=== PATIENT | male | born 1940 | race Caucasian/White ===

== ENCOUNTER 2016-10-27 11:40 | Emergency (ER) | payer OTHER, MEDICARE ==
[2016-10-27 11:48] VITALS: BMI 30.1
--- NOTE | 2016-10-27 11:51 | DR.GENAD ---
HPI - PCP Primary Care Physician: Dr Varma - Complaint/Symptoms Chief Complaint Doctors Comments: Patient states that he was talking to persion and suddenly beccame weak and diaphoretic. There was no chest pain or shortness of breath. He reports that he had a stress test on last performed by Dr Ramirez; results pending. PMH - PMH Past Medical History: Hypertension, Kidney Stones, [place] Past Surgical History: Yes Surgical History: Abdominal Surgery, Appendectomy, CABG/Valve Surgery, Lithotripsy - Family History Family Medical History: [place], Hypertension - Social History Do you use any recreational Drugs:: No ROS - Review of Systems Eyes: No Symptoms Reported ENTM: No Symptoms Reported Respiratoy: No Symptoms Reported Cardiovascular: No Symptoms Reported Gastrointestinal/Abdominal: No Symptoms Reported Genitourinary: No Symptoms Reported Neurological: No Symptoms Reported Musculoskeletal: No Symptoms Reported Integumentary: No Symptoms Reported Hematologic/Lymphatic: No Symptoms Reported Endocrine: No Symptoms Reported Psychiatric: No Symptoms Reported All Other Systems: Reviewed and Negative PE - Vital Signs Vitals: Temperature 97.7 F Pulse Rate [Right Brachial] 62 Pulse Rate 73 Respiratory Rate 16 Blood Pressure [Right Arm] 157/74 Blood Pressure [Left Arm] 110/55 Blood Pressure 191/88 O2 Sat by Pulse Oximetry 95 - General Limitations: No Limitations General Appearance: Alert, Anxious - Head Head Exam: Normal Inspection, Atraumatic - Eyes Eye exam: Normal Appearance, PERRL, EOMI - ENT ENT Exam: Normal Exam External Ear Exam: Normal External Inspection TM/Canal Exam: Bilateral Normal Nose Exam: Normal Nose Exam Mouth Exam: Normal Inspection Throat Exam: Normal Inspection - Neck Neck Exam: Normal Inspection - Chest Chest Inspection: Normal Inspection - Respiratory Respiratory Exam: Normal Lung Sounds Bilat Respiratory Exam: Bilateral Clear to Auscultation - Cardiovascular Cardiovascular Exam: Regular Rate - Abdominal Exam Abdominal Exam: Normal Inspection Abdominal Tenderness: negative: RUQ, RLQ, LUQ, LLQ, Epigastrium, Suprapubic, Diffuse, Mild, Moderate, Severe, Other - Back Back Exam: Normal Inspection - Neurologic Neurological Exam: Alert, Oriented X3, CN II-XII Intact - Psychiatric Psychiatric Exam: Normal Affect - Skin Skin Exam: Warm, Dry Course - Reevaluation 1st: Improved - Consultation Called: 13:00 (Dr Varma agreed to admit for chest pain ) ROR - Labs Reviewed Result Diagrams: 10/27/16 12:03 10/27/16 12:03 Laboratory: WBC 5.8 X10^3/uL (3.6-10.0) 10/27/16 12:03 RBC 4.39 X10^6/uL (4.7-6.0) L 10/27/16 12:03 Hgb 13.2 g/dL (13.5-18.0) L 10/27/16 12:03 Hct 39.0 % (42.0-54.0) L 10/27/16 12:03 MCV 88.8 fL (80.0-100.0) 10/27/16 12:03 MCH 30.1 pg (27.0-34.0) 10/27/16 12:03 MCHC 33.8 g/dL (33.0-35.0) 10/27/16 12:03 RDW 15.1 % (11.6-16.5) 10/27/16 12:03 Plt Count 234 X10^3/uL (150.0-450.0) 10/27/16 12:03 MPV 7.6 fL (7.4-11.0) 10/27/16 12:03 Neut % 61.2 % (42.0-75.0) 10/27/16 12:03 Lymph % 24.3 % (21.0-51.0) 10/27/16 12:03 Taney % 10.9 % (0.0-13.0) 10/27/16 12:03 Eos % 2.9 % (0.9-2.9) 10/27/16 12:03 Baso % 0.7 % (0.2-1.0) 10/27/16 12:03 Neut # 3.6 x10^3/uL (2.2-4.8) 10/27/16 12:03 Lymph # 1.4 X10^3/uL (1.3-2.9) 10/27/16 12:03 Taney # 0.6 x10^3/uL (0.3-0.8) 10/27/16 12:03 Eos # 0.2 x10^3/uL (0.0-0.2) 10/27/16 12:03 Baso # 0.0 X10^3/uL (0.0-0.1) 10/27/16 12:03 Absolute Nucleated RBC 0.0 /100WBC 10/27/16 12:03 INR Target Range - 10/27/16 12:03 INR 1.02 (0.8-1.3) 10/27/16 12:03 Sodium 142 mmol/L (136-145) 10/27/16 12:03 Corrected Sodium 142 mmol/L (136-145) 10/27/16 12:03 Potassium 3.8 mmol/L (3.5-5.1) 10/27/16 12:03 Chloride 106 mmol/L (98-107) 10/27/16 12:03 Carbon Dioxide 28.5 mmol/L (21-32) 10/27/16 12:03 BUN 13 mg/dL (7-18) 10/27/16 12:03 Creatinine 0.96 mg/dL (0.70-1.30) 10/27/16 12:03 Est GFR (MDRD) Af Amer > 60 (>60) 10/27/16 12:03 Est GFR (MDRD) Non-Af > 60 (>60) 10/27/16 12:03 Glucose 116 mg/dL (65-99) H 10/27/16 12:03 Calcium 8.5 mg/dL (8.5-10.1) 10/27/16 12:03 Corrected Calcium TNP 10/27/16 12:03 Phosphorus 3.3 mg/dL (2.6-4.7) 10/27/16 12:03 Magnesium 1.8 mg/dL (1.7-2.9) 10/27/16 12:03 Total Bilirubin 0.40 mg/dL (0.2-1.0) 10/27/16 12:03 AST 57 Units/L (15-37) H 10/27/16 12:03 ALT 59 Units/L (12-78) 10/27/16 12:03 Alkaline Phosphatase 91 Units/L (46-116) 10/27/16 12:03 Creatine Kinase 157 Units/L (39-308) 10/27/16 12:03 CK-MB (CK-2) 1.5 ng/mL (0-4.0) 10/27/16 12:03 CK/CKMB % Calc 1.0 % (<4) 10/27/16 12:03 Troponin I < 0.02 ng/mL (0-1.5) 10/27/16 12:03 Total Protein 7.4 g/dL (6.4-8.2) 10/27/16 12:03 Albumin 3.4 g/dL (3.4-5.0) 10/27/16 12:03 Globulin 4.0 g/dL (2.5-4.5) 10/27/16 12:03 Albumin/Globulin Ratio 0.9 Ratio (1.1-2.1) L 10/27/16 12:03 - XRAY XRAY Interpreted by: Radiologist (CT Brain: No intracranial process, bilateral phenoid sinusitis,Chest: stable mild cardiomegaly with bilateral interstitial prominence no focal consolidation or significant effusion) - Diagnosis Discharge Problem: Chest pain Qualifiers: Chest pain type: unspecified Qualified Code(s): R07.9 - Chest pain, unspecified - Discharge Plan Condition: Stable - Follow ups/Referrals Follow ups/Referrals: Dylan Varma [Primary Care Provider] - 3 days - Instructions
[2016-10-27 12:12] LABS: BASOPHILS % (AUTO) 0.7 % (0.2-1.0); EOSINOPHILS # (AUTO) 0.2 x10^3/uL (0.0-0.2); EOSINOPHILS % (AUTO) 2.9 % (0.9-2.9); HEMOGLOBIN 13.2 g/dL (13.5-18.0); LYMPHOCYTES # (AUTO) 1.4 X10^3/uL (1.3-2.9); LYMPHOCYTES % (AUTO) 24.3 % (21.0-51.0); MEAN CORPUSCULAR HEMOGLOBIN 30.1 pg (27.0-34.0); MEAN CORPUSCULAR HGB CONC 33.8 g/dL (33.0-35.0); MEAN CORPUSCULAR VOLUME 88.8 fL (80.0-100.0); MEAN PLATELET VOLUME 7.6 fL (7.4-11.0); MONOCYTES # (AUTO) 0.6 x10^3/uL (0.3-0.8); MONOCYTES % (AUTO) 10.9 % (0.0-13.0); NEUTROPHILS # (AUTO) 3.6 x10^3/uL (2.2-4.8); NEUTROPHILS % (AUTO) 61.2 % (42.0-75.0); PLATELET COUNT 234 X10^3/uL (150.0-450.0); RED BLOOD COUNT 4.39 X10^6/uL (4.7-6.0); RED CELL DISTRIBUTION WIDTH 15.1 % (11.6-16.5); WHITE BLOOD COUNT 5.8 X10^3/uL (3.6-10.0)
[2016-10-27 12:33] LABS: BLOOD UREA NITROGEN 13 mg/dL (7-18); CALCIUM 8.5 mg/dL (8.5-10.1); CARBON DIOXIDE 28.5 mmol/L (21-32); CHLORIDE 106 mmol/L (98-107); COR NA(FOR HYPERGLY) 142 mmol/L (136-145); CREATININE 0.96 mg/dL (0.70-1.30); GLUCOSE 116 mg/dL (65-99); SODIUM 142 mmol/L (136-145); TROPONIN I < 0.02 ng/mL (0-1.5); eGFR BLACK RACES > 60 (>60); eGFR NON BLACK RACES > 60 (>60)
[2016-10-27 12:38] LABS: ALANINE AMINOTRANSFERASE 59 Units/L (12-78); ALBUMIN 3.4 g/dL (3.4-5.0); ALKALINE PHOSPHATASE 91 Units/L (46-116); ASPARTATE AMINO TRANSFERASE 57 Units/L (15-37); CREATINE KINASE 157 Units/L (39-308); CREATINE KINASE MB 1.5 ng/mL (0-4.0); MAGNESIUM 1.8 mg/dL (1.7-2.9); PHOSPHORUS 3.3 mg/dL (2.6-4.7); TOTAL PROTEIN 7.4 g/dL (6.4-8.2)
--- NOTE | 2016-10-27 12:39 | CT ---
HISTORY: Weakness Study: CT brain without contrast Comparison: None Technique: Multiple axial images of the brain were obtained from the skull base to the vertex without administr ation of IV contrast. Coronal and sagittal reformats were performed. Dose reduction procedures were used with MA/kv adjusted for body size. Findings: No acute intraparenchymal hemorrhage or mass can be identified. No extra-axial fluid collections ar e seen. No alteration in the attenuation of the brain parenchyma can be identified to suggest acute or subacute ischemic change. The ventricular system is symmetric and nondilated. age-related corti jose atrophy is present. There is decreased attenuation in the periventricular white matter suggestiv e of small vessel vascular disease. There is opacification of the right and left sphenoid sinuses cano ggestive of sinusitis. IMPRESSION: 1. No acute intracranial process can be identified. 2. Age-related cortical atrophy 3. Small-vessel disease 4. Bilateral sphenoid sinusitis Reported By:
[2016-10-27 14:26] LABS: BILIRUBIN,URINE NEGATIVE (NEGATIVE); BLOOD/HEMOGLOBIN,URINE NEGATIVE (NEGATIVE); GLUCOSE, URINE NEGATIVE (NEGATIVE); KETONES,URINE NEGATIVE (NEGATIVE); LEUKOCYTE ESTERASE ,URINE NEGATIVE (NEGATIVE); NITRITES,URINE NEGATIVE (NEGATIVE); PROTEIN,URINE NEGATIVE (NEGATIVE); UROBILINOGEN,URINE NORMAL (NORMAL)
[2016-10-27 14:41] LABS: APPEARANCE,URINE CLEAR (CLEAR); BACTERIA,URINE NEGATIVE /HPF (NEGATIVE); COLOR,URINE YELLOW (YELLOW); RBC,URINE NONE SEEN /HPF (NEGATIVE); SQUAMOUS EPITHELIAL CELL,UR RARE /HPF (NEGATIVE)
[2016-10-27] MEDS ORDERED: PREVNAR 13 IM ONE (16:27)
[2016-10-27] MEDS ORDERED: TYLENOL 325 MG TAB PO ONE (16:41)
[2016-10-27] MEDS: TYLENOL 325 MG TAB PO PRN (16:45)
[2016-10-27 18:25] LABS: CREATINE KINASE 147 Units/L (39-308); TROPONIN I < 0.02 ng/mL (0-1.5)
[2016-10-27 18:48] LABS: CKMB % 0.9 % (<4); CREATINE KINASE MB 1.3 ng/mL (0-4.0)
--- NOTE | 2016-10-27 18:53 | DR.H&P ---
H&P - Allergies Allergies/Adverse Reactions: Allergies Allergy/AdvReac Type Severity Reaction Status Date / Time No Known Drug Allergies Allergy Verified 10/27/16 15:58 - Past Medical History Past Medical History: Angina, Arthritis, Coronary Artery Disease, GERD, Hypertension, Kidney Stones, [place] Additional Medical History: Diverticulosis, AAA, BPH, Back Pain, Degenerative Disc Disease, Prostate Cancer in 2007, CABG - Past Surgical History Surgical History: Abdominal Surgery, Appendectomy, CABG/Valve Surgery, Lithotripsy Additional Surgical History: HERNIA REPAIR - Family History Family Medical History: [place], Coronary Artery Disease - Social History Does patient currently use any type of tobacco product: No Have you used tobacco products in the last 12 months: No Type of Tobacco Use: None Does any household member use tobacco: No Alcohol Use: None Drug Use: None - Medications Home Medications: Atorvastatin Calcium 1 tab PO HS 10/27/16 [History Confirmed 10/27/16] - Physical Exam Vital Signs: Temperature 97.8 F Pulse Rate [Right Brachial] 63 Respiratory Rate 20 Blood Pressure [Right Arm] 147/71 O2 Sat by Pulse Oximetry 95
[2016-10-28 01:01] LABS: CKMB % 0.8 % (<4); CREATINE KINASE 143 Units/L (39-308); CREATINE KINASE MB 1.1 ng/mL (0-4.0); TROPONIN I < 0.02 ng/mL (0-1.5)
[2016-10-28] MEDS: TYLENOL 325 MG TAB PO PRN (04:47)
[2016-10-28 05:50] LABS: BASOPHILS % (AUTO) 0.6 % (0.2-1.0); EOSINOPHILS # (AUTO) 0.2 x10^3/uL (0.0-0.2); EOSINOPHILS % (AUTO) 3.3 % (0.9-2.9); HEMATOCRIT 39.1 % (42.0-54.0); HEMOGLOBIN 13.2 g/dL (13.5-18.0); LYMPHOCYTES # (AUTO) 1.2 X10^3/uL (1.3-2.9); LYMPHOCYTES % (AUTO) 21.3 % (21.0-51.0); MEAN CORPUSCULAR HEMOGLOBIN 30.1 pg (27.0-34.0); MEAN CORPUSCULAR HGB CONC 33.8 g/dL (33.0-35.0); MEAN PLATELET VOLUME 7.9 fL (7.4-11.0); MONOCYTES # (AUTO) 0.7 x10^3/uL (0.3-0.8); MONOCYTES % (AUTO) 12.2 % (0.0-13.0); NEUTROPHILS # (AUTO) 3.5 x10^3/uL (2.2-4.8); NEUTROPHILS % (AUTO) 62.6 % (42.0-75.0); PLATELET COUNT 231 X10^3/uL (150.0-450.0); RED BLOOD COUNT 4.39 X10^6/uL (4.7-6.0); RED CELL DISTRIBUTION WIDTH 14.7 % (11.6-16.5); WHITE BLOOD COUNT 5.6 X10^3/uL (3.6-10.0)
[2016-10-28 06:00] LABS: ALANINE AMINOTRANSFERASE 60 Units/L (12-78); ALBUMIN 3.3 g/dL (3.4-5.0); ALKALINE PHOSPHATASE 95 Units/L (46-116); ASPARTATE AMINO TRANSFERASE 59 Units/L (15-37); BLOOD UREA NITROGEN 11 mg/dL (7-18); CALCIUM 8.5 mg/dL (8.5-10.1); CARBON DIOXIDE 27.1 mmol/L (21-32); CHLORIDE 107 mmol/L (98-107); CHOLESTEROL 126 mg/dL (0-200); COR CA(FOR HYPOALB) 9.1 mg/dL (8.5-10.1); CREATININE 0.87 mg/dL (0.70-1.30); GLUCOSE 94 mg/dL (65-99); HDL CHOLESTEROL 42 mg/dL (40-60); SODIUM 143 mmol/L (136-145); TOTAL PROTEIN 7.4 g/dL (6.4-8.2); TRIGLYCERIDES 186 mg/dL (0-150); eGFR BLACK RACES > 60 (>60); eGFR NON BLACK RACES > 60 (>60)
--- NOTE | 2016-10-28 07:25 | RAD ---
HISTORY: Chest pain Study: Chest one view Comparison: October 27, 2016 Findings: The trachea is midline. The cardiac silhouette is enlarged. No congestive heart failure is noted.. The lungs are clear without focal infiltrate or effusion. The bony thorax is unremarkable. The pa tient is status post median sternotomy. IMPRESSION: 1. Cardiomegaly without congestive heart failure 2. No infiltrates Reported By:
[2016-10-28 08:45] VITALS: BP 136/67
[2016-10-28] MEDS ORDERED: PriLOSEC PO SCH (09:00)
[2016-10-28] MEDS ORDERED: NORVASC TAB 5 MG PO SCH (09:00)
[2016-10-28] MEDS ORDERED: TOPROL XL PO SCH (09:00)
[2016-10-28] MEDS ORDERED: LOTENSIN TAB 10 MG PO SCH (09:00)
[2016-10-28] MEDS ORDERED: OMEPRAZOLE PO SCH (09:00)
--- NOTE | 2016-10-28 09:29 | DR.CARTERS ---
Short Stay Summary - Short Stay Summary for: Short Stay Summary for Date of:: 10/28/16 - Admission Date Date of Admission: 10/27/16 - Discharge Date Discharge Date: 10/28/16 - Admission Diagnoses (1) Chest pain Status: Acute - Hospital Course Hospital Course: DAY 1 OF HOSPITAL STAY: MR. MANCINI IS A 76 YEAR OLD PATIENT OF OURS WHO PRESENTED TO THE EMERGENCY ROOM TODAY WITH COMPLAINTS OF WEAKNESS, DIZZINESS, AND DIAPHORESIS. PATIENT STATED THAT HE WAS TALKING WITH A FRIEND WHEN SYMPTOMS STARTED SUDDENLY. PATIENT ALSO COMPLAINED OF CHEST PAIN. PATIENT REPORTED A CARDIAC HISTORY AND STATED THAT HE HAD A STRESS TEST DONE BY LAST WEEK, BUT HE IS AWAITING RESULTS. ON ARRIVAL TO ER, VITALS WERE 97.7, 73, 16, 95 %, 191/88. LABS, CHEST XRAY, AND BRAIN CT WERE OBTAINED. CBC WNL EXCEPT RBC 4.39 , HGB 13.2, HCT 39. CMP WNL EXCEPT GLUCOSE 116, AST 57. URINALYSIS WNL. INR WNL. CHEST XRAY REPORTED STABLE MILD CARDIOMEGALY WITH BILATERAL INTERSTITAL PROMINANCE, POSSIBLY RELATED TO LOW LUNG VOLUMES OR REPRESENT MILD INTERSTITIAL EDEMA. BRAIN CT REPORTS AGE RELATED CORTICAL ATROPHY, SMALL VESSEL DISEASE, AND BILATERAL SPHENOID SINUSITIS. CARDIAC PROFILE NORMAL. EKG REPORTED MULTIPLE PVCs. DUE TO PATIENTS CARDIAC HISTORY, HE WAS ADMITTED FOR FURTHER TREATMENT AND EVALUATION. WE PLANNED TO RECHECK LABS AND FOLLOW UP WITH PATIENT. DAY 2 OF HOSPITAL STAY: PATIENT IS ALERT AND ORIENTED ON MORNING ROUNDS. PATIENT REPORTS FEELING MUCH BETTER. HE DENIES ANY CHEST PAIN, DIZZINESS, OR DIAPHORESIS. VITALS THIS AM WERE 97.6, 68, 18, 92%, 136/67. LABS AND XRAY WERE OBTAINED. CBC WNL EXCEPT RBC 4.39, HGB 13.2, HCT 39.1. CMP WNL EXCEPT AST 59, ALBUMIN 3.3, TRIGLYCERIDES 186. CARDIAC PROFILES WITHIN NORMAL LIMITS. EKG NORMAL. CHEST XRAY REPORTED CARDIOMEGALY WITHOUT CHF. WE PLANNED FOR DISCHARGE. INSTRUCTIONS FOR MEDICATIONS AND FOLLOW-UP WERE DISCUSSED WITH PATIENT AND FAMILY. BOTH VERBALIZED UNDERSTANDING. PATIENT WAS DISCHARGED HOME WITH FAMILY IN STABLE CONDITION. WE CONTINUED PREVIOUS HOME MEDICATIONS WITH INSTRUCTIONS TO FOLLOW UP IN OFFICE NEXT WEEK. - Discharge Medications Discharge Medications: Atorvastatin Calcium 1 tab PO HS 10/27/16 [History] - Discharge Plan Disposition: 01 HOME, SELF-CARE Condition: Stable - Follow up/Referrals Follow up/Referrals: Dylan Varma [Primary Care Provider] - 1 WEEK - Instructions Instructions: Chest Pain Observation Additional Instructions: ACTIVITY TOLERATED. DIET TOLERATED.
[2016-10-28] MEDS ORDERED: LIPITOR TAB 40 MG PO SCH (21:00)
== END 2016-10-28 11:15 | disposition home or self-care (01) ==
LOC: ER 11:53 → MED/SURG 13:46
PROVIDERS: ADMIT Internal Medicine; ATTEND Internal Medicine
PROC: 3E0234Z Introduction of Serum, Toxoid and Vaccine into Muscle, Percutaneous Approach (ICD-10-PCS; principal; 2016-10-27)
DX: R07.89 Other chest pain (principal); R94.31 Abnormal electrocardiogram [ECG] [EKG]; D64.89 Other specified anemias; Z79.899 Other long term (current) drug therapy; R53.1 Weakness; R42 Dizziness and giddiness; I51.7 Cardiomegaly; Z23 Encounter for immunization
CPT/HCPCS: 36415; 70450; 71010; 80053; 80061; 81001; 82550; 82553; 83735; 84100; 84484; 85025; 85610; 93005; 94760; 96365; 99284; A4216; A4222; 90670; G0378

== ENCOUNTER 2021-02-01 10:06 | Inpatient (IN) ==
[2021-02-01 10:15] VITALS: BMI 29.7
--- NOTE | 2021-02-01 10:35 | DR.URIAD ---
HPI Time Seen Time Seen by Provider: 02/01/21 10:21 PCP Primary Care Physician: JANUSZ MENDOZA Complaint Chief Complaint:: PT REPORTS BEING DIZZY AND LOST HIS BALANCE AND PT STATES THAT HE FELL TO THE FLOOR AND THAT HIS HEAD HIT SOMETHING ..BR PT C/O HAVING > N/V, THAT IS WORSE HE STANDS ,BR ( PT'S GAVE HIM ONE OF HER MECLIZINE) PT HAD AN APPT WITH JANUSZ MENDOZA TODAY ,,BR COVID-19 Coronavirus risk:travel/contact w/high risk person: No Has patient experienced Coronavirus symptoms: No Source History Provided: Patient Mode of Arrival Mode of Arrival: Wheelchair Timing Onset of Chief Complaint: 01/28/21 PMH PMH Past Medical History: Yes Past Medical History: Hypertension, Kidney Stones and [place] Past Surgical History: Yes Surgical History: Abdominal Surgery, Appendectomy, CABG/Valve Surgery and Lithotripsy Family History History of Family Medical Conditions: Yes Family Medical History: [place] and Coronary Artery Disease Social History Does patient currently use any type of tobacco product: No Have you used tobacco products in the last 12 months: No Type of Tobacco Use: None Does any household member use tobacco: No Alcohol Use: None Do you use any recreational Drugs:: No Lives With: Family Lives Where: Home Travel Risk Coronavirus risk:travel/contact w/high risk person: No Has patient experienced Coronavirus symptoms: No Infectious screening In the last 2 months have you had wt loss of >10#?: NO Have you had fever, night sweats or hemotysis?: No Have you traveled outside the country in the last 6 months?: No Isolation: Standard PE Vital Signs Vitals: Temperature 98.9 F Pulse Rate 90 Respiratory Rate 18 Blood Pressure [Right Arm] 115/57 Blood Pressure [Left Arm] 136/67 Blood Pressure 115/57 O2 Sat by Pulse Oximetry 93 ROR Labs Reviewed Result Diagrams: 02/01/21 10:54 02/01/21 10:54 Laboratory: WBC 10.9 X10^3/uL (3.6-10.0) H 02/01/21 10:54 RBC 4.22 X10^6/uL (4.7-6.0) L 02/01/21 10:54 Hgb 10.0 g/dL (13.5-18.0) L 02/01/21 10:54 Hct 31.7 % (42.0-54.0) L 02/01/21 10:54 MCV 75.0 fL (80.0-100.0) L 02/01/21 10:54 MCH 23.7 pg (27.0-34.0) L 02/01/21 10:54 MCHC 31.6 g/dL (33.0-35.0) L 02/01/21 10:54 RDW 20.5 % (11.6-16.5) H 02/01/21 10:54 Plt Count 326 X10^3/uL (150.0-450.0) 02/01/21 10:54 Plt Count Comment Adequate (ADEQUATE) 02/01/21 10:54 MPV 6.9 fL (7.4-11.0) L 02/01/21 10:54 Neut % (Auto) 82.7 % (42.0-75.0) H 02/01/21 10:54 Lymph % (Auto) 4.6 % (21.0-51.0) L 02/01/21 10:54 Miller % (Auto) 12.4 % (0.0-13.0) 02/01/21 10:54 Eos % (Auto) 0.1 % (0.9-2.9) L 02/01/21 10:54 Baso % (Auto) 0.2 % (0.2-1.0) 02/01/21 10:54 Neut # (Auto) 9.0 x10^3/uL (2.2-4.8) H 02/01/21 10:54 Lymph # (Auto) 0.5 X10^3/uL (1.3-2.9) L 02/01/21 10:54 Miller # (Auto) 1.4 x10^3/uL (0.3-0.8) H 02/01/21 10:54 Eos # (Auto) 0.0 x10^3/uL (0.0-0.2) 02/01/21 10:54 Baso # (Auto) 0.0 X10^3/uL (0.0-0.1) 02/01/21 10:54 Absolute Nucleated RBC 0.1 /100WBC 02/01/21 10:54 Plt Morphology Comment Normal (NORMAL) 02/01/21 10:54 RBC Morphology Abnormal (NORMAL) 02/01/21 10:54 Hypochromasia Slight A 02/01/21 10:54 Anisocytosis 1+ A 02/01/21 10:54 Microcytosis Slight A 02/01/21 10:54 D-Dimer 0.60 ug/ml (0.0-0.57) H* 02/01/21 14:02 Sample Site Rra 02/01/21 15:12 ABG pH 7.430 (7.35-7.45) 02/01/21 15:12 ABG pCO2 38.0 mmHg (35.0-45.0) 02/01/21 15:12 ABG pO2 56.0 mmHg (80.0-100.0) L 02/01/21 15:12 ABG HCO3 25.2 mmol/L (22-26) 02/01/21 15:12 ABG O2 Saturation 90.0 % (90-100) 02/01/21 15:12 ABG Base Excess 1.0 mmol/L (-2.0-2.0) 02/01/21 15:12 Robin Test Pos 02/01/21 15:12 A-a Gradient 46.0 mmHg 02/01/21 15:12 FiO2 21.0 02/01/21 15:12 Blood Gas Comments Pt taz well eb 02/01/21 15:12 Sodium 135 mmol/L (136-145) L 02/01/21 10:54 Corrected Sodium 136 mmol/L (136-145) 02/01/21 10:54 Potassium 4.4 mmol/L (3.5-5.1) 02/01/21 10:54 Chloride 98 mmol/L (98-107) 02/01/21 10:54 Carbon Dioxide 28.1 mmol/L (21-32) 02/01/21 10:54 BUN 21 mg/dL (7-18) H 02/01/21 10:54 Creatinine 1.13 mg/dL (0.70-1.30) 02/01/21 10:54 Est GFR (MDRD) Af Amer > 60 (>60) 02/01/21 10:54 Est GFR (MDRD) Non-Af > 60 (>60) 02/01/21 10:54 Glucose 121 mg/dL (65-99) H 02/01/21 10:54 Calcium 8.2 mg/dL (8.5-10.1) L 02/01/21 10:54 Corrected Calcium TNP 02/01/21 10:54 Ferritin 31 ng/mL (26-388) 02/01/21 10:54 Total Bilirubin 0.40 mg/dL (0.2-1.0) 02/01/21 10:54 AST 29 Units/L (15-37) 02/01/21 10:54 ALT 36 Units/L (12-78) 02/01/21 10:54 Alkaline Phosphatase 65 Units/L (46-116) 02/01/21 10:54 Creatine Kinase 142 Units/L (39-308) 02/01/21 10:54 CK-MB (CK-2) < 1.0 ng/mL (0-4.0) 02/01/21 10:54 CK/CKMB % Calc 0.7 % (<4) 02/01/21 10:54 Troponin I < 0.02 ng/mL (0-1.5) 02/01/21 10:54 C-Reactive Protein 12.50 mg/L (0-3.0) H 02/01/21 10:58 B-Natriuretic Peptide 203 pg/mL (0-79) H 02/01/21 10:58 Total Protein 7.5 g/dL (6.4-8.2) 02/01/21 10:54 Albumin 3.5 g/dL (3.4-5.0) 02/01/21 10:54 Globulin 4.0 g/dL (2.5-4.5) 02/01/21 10:54 Albumin/Globulin Ratio 0.9 Ratio (1.1-2.1) L 02/01/21 10:54 Amylase 90 Units/L (25-115) 02/01/21 10:54 Lipase 197 Units/L (73-393) 02/01/21 10:54 Specimen Type Random urine 02/01/21 10:58 Urine Color Yellow (YELLOW) 02/01/21 10:58 Urine Appearance Clear (CLEAR) 02/01/21 10:58 Urine pH 6.0 (5.0 - 8.0) 02/01/21 10:58 Ur Specific [place] 1.020 (1.000-1.030) 02/01/21 10:58 Urine Protein 2+ (NEGATIVE) 02/01/21 10:58 Urine Glucose (UA) Negative (NEGATIVE) 02/01/21 10:58 Urine Ketones Negative (NEGATIVE) 02/01/21 10:58 Urine Occult Blood 1+ (NEGATIVE) 02/01/21 10:58 Urine Nitrite Negative (NEGATIVE) 02/01/21 10:58 Urine Bilirubin Negative (NEGATIVE) 02/01/21 10:58 Urine Urobilinogen Normal (NORMAL) 02/01/21 10:58 Ur Leukocyte Esterase Negative (NEGATIVE) 02/01/21 10:58 Urine RBC 0-2 /HPF (0-3) 02/01/21 10:58 Urine WBC None seen /HPF (0-5) 02/01/21 10:58 Ur Squamous Epith Cells Rare /HPF (NEGATIVE) 02/01/21 10:58 Urine Bacteria Negative /HPF (NEGATIVE) 02/01/21 10:58 Ur Culture Indicated? No/not indicated 02/01/21 10:58 SARS CoV-2 RNA Rapid VIRGIL Positive (NEGATIVE) A 02/01/21 12:03 Opioid Opioid Risk Tool Age (Galo box if 16-45): No History of Preadolescent Sexual Abuse: No Total: 0 Total Score Risk Category: Low Risk Copyright: Philippe RUSSELL predicting aberrant behaviors Instructions Forms: EUA Consent Precautions for COVID19 [facility] Patient Portal Social Distancing
[2021-02-01] MEDS ORDERED: NS 1000 ML 1,000 ML ONE (10:37)
[2021-02-01] MEDS ORDERED: ZOFRAN INJ 4 MG VIAL ONE (10:55)
[2021-02-01] MEDS ORDERED: ZOFRAN INJ 4 MG VIAL IVP ONE (10:55)
[2021-02-01] MEDS: NS 1000 ML 1,000 ML IV SCH ×2 (10:59→20:56)
[2021-02-01 11:07] LABS: BASOPHILS % (AUTO) 0.2 % (0.2-1.0); EOSINOPHILS % (AUTO) 0.1 % (0.9-2.9); HEMATOCRIT 31.7 % (42.0-54.0); LYMPHOCYTES # (AUTO) 0.5 X10^3/uL (1.3-2.9); LYMPHOCYTES % (AUTO) 4.6 % (21.0-51.0); MEAN CORPUSCULAR HEMOGLOBIN 23.7 pg (27.0-34.0); MEAN CORPUSCULAR HGB CONC 31.6 g/dL (33.0-35.0); MEAN PLATELET VOLUME 6.9 fL (7.4-11.0); MONOCYTES # (AUTO) 1.4 x10^3/uL (0.3-0.8); MONOCYTES % (AUTO) 12.4 % (0.0-13.0); NEUTROPHILS % (AUTO) 82.7 % (42.0-75.0); PLATELET COUNT 326 X10^3/uL (150.0-450.0); RED BLOOD COUNT 4.22 X10^6/uL (4.7-6.0); RED CELL DISTRIBUTION WIDTH 20.5 % (11.6-16.5); WHITE BLOOD COUNT 10.9 X10^3/uL (3.6-10.0)
[2021-02-01 11:28] LABS: ANISOCYTOSIS 1+; HYPOCHROMASIA SLIGHT; MICROCYTOSIS SLIGHT; PLATELET MORPHOLOGY COMMENT NORMAL (NORMAL)
[2021-02-01 11:31] LABS: ALANINE AMINOTRANSFERASE 36 Units/L (12-78); ALBUMIN 3.5 g/dL (3.4-5.0); ALKALINE PHOSPHATASE 65 Units/L (46-116); AMYLASE 90 Units/L (25-115); ASPARTATE AMINO TRANSFERASE 29 Units/L (15-37); BLOOD UREA NITROGEN 21 mg/dL (7-18); CALCIUM 8.2 mg/dL (8.5-10.1); CARBON DIOXIDE 28.1 mmol/L (21-32); CHLORIDE 98 mmol/L (98-107); CKMB % 0.7 % (<4); COR NA(FOR HYPERGLY) 136 mmol/L (136-145); CREATINE KINASE 142 Units/L (39-308); CREATINE KINASE MB < 1.0 ng/mL (0-4.0); CREATININE 1.13 mg/dL (0.70-1.30); LIPASE 197 Units/L (73-393); SODIUM 135 mmol/L (136-145); TOTAL PROTEIN 7.5 g/dL (6.4-8.2); TROPONIN I < 0.02 ng/mL (0-1.5); eGFR NON BLACK RACES > 60 (>60)
--- NOTE | 2021-02-01 12:44 | CT ---
HISTORYDIZZYSTUDYHEAD (TRAUMA)COMPARISONNoneTECHNIQUE including Automated Exposure Control (AEC) and adjustment of mA and kV were utilized.Contrast: NoneFINDINGSBRAIN PARENCHYMA: No acute hemorrhage, infarct, mass, or mass effect.Crespo-white differentiation is maintained.Scattered white matter chronic small vessel ischemic changes.VENTRICLES/EXTRA-AXIAL SPACES: Normal size and configuration. There is mild cerebral volume loss. No extra-axial fluid collections are identified.EXTRACRANIAL STRUCTURES:Normal bones and soft tissues. There is severe chronic bilateral sphenoid sinusitis with hyperdense material which could reflect chronic inspissated secretions versus allergic fungal sinusitis.IMPRESSIONIntra-axial changes of advancing chronological age without acute intracranial process. Severe chronic sphenoid sinusitis.Electronically signed by: LYN GARY (Feb 01, 2021 12:41:41)
--- NOTE | 2021-02-01 12:53 | CT ---
ABDOMEN/PELVIS W/O CONHISTORY: PAIN, NAUSEAComparison:NoneTechnique:Multiple non contrast axial images of the abdomen and pelvis were obtained from the lung bases to the pubic symphysis.. Dose reduction techniques including Automated Exposure Control (AEC) and adjustment of mA and kV were utlized.Findings:The sensitivity for focal lesion detection within the solid abdominal viscera is diminished without the use of IV contrast.The heart is normal in size. Severe coronary calcification. Mild fibrosis of the lung bases.Liver and spleen are normal in size, contour. No focal lesions. No ductal dilitation. Gallbladder is present. No calcified gallstones or gallbladder wall thickening. The pancreas is unremarkable. Adrenal glands are normal. Kidneys are without hydronephrosis or nephrolithiasis. Severe atherosclerosis of the aorta and its major branches.No bowel obstruction or inflammation. .Appendix not clearly seen however there is no inflammatory change in the right lower quadrant to suggest appendicitis. No abnormal appearing mesenteric or retroperitoneal lymph nodes. . No free fluid or fluid collections. Severe diverticulosis without definite acute diverticular inflammation.The bladder is normal in appearance. Prostate unremarkable. No free fluid or abnormal pelvic lymph nodes.No aggressive osseous lesions.IMPRESSION:1.No definite source of acute pain or nausea identified.2. Chronic findings as above.Electronically signed by: LISA SUGGS (Feb 01, 2021 12:51:51)
[2021-02-01 14:37] LABS: BILIRUBIN,URINE NEGATIVE (NEGATIVE); BLOOD/HEMOGLOBIN,URINE 1+ (NEGATIVE); GLUCOSE, URINE NEGATIVE (NEGATIVE); KETONES,URINE NEGATIVE (NEGATIVE); LEUKOCYTE ESTERASE ,URINE NEGATIVE (NEGATIVE); NITRITES,URINE NEGATIVE (NEGATIVE); PROTEIN,URINE 2+ (NEGATIVE); UROBILINOGEN,URINE NORMAL (NORMAL)
--- NOTE | 2021-02-01 14:45 | RAD ---
CHEST, 1 VIEWHISTORY: HYPOXIA, COUGH, VERY WEAKStudy: Single view of the chest.Comparison:NoneFindings:The cardiomediastinal silhouette is normal. Bilateral interstitial prominence. No focal consolidations, pleural effusions or pneumothorax. Osseous structures demonstrate no acute abnormality.IMPRESSION:1. Bilateral interstitial prominence. Findings may represent atypical infection, including viral etiologies.Electronically signed by: LISA SUGGS (Feb 01, 2021 14:43:07)
[2021-02-01 14:52] LABS: APPEARANCE,URINE CLEAR (CLEAR); COLOR,URINE YELLOW (YELLOW); RBC,URINE 0-2 /HPF (0-3)
[2021-02-01 14:53] LABS: BACTERIA,URINE NEGATIVE /HPF (NEGATIVE); SQUAMOUS EPITHELIAL CELL,UR RARE /HPF (NEGATIVE)
[2021-02-01] MEDS ORDERED: TORADOL 30 MG VIAL IVP ONE (15:07)
[2021-02-01] MEDS ORDERED: TORADOL 30 MG VIAL ONE (15:11)
[2021-02-01 15:17] LABS: ABG ALLEN TEST POS; ABG HCO3 25.2 mmol/L (22-26)
[2021-02-01] MEDS ORDERED: NS 100 ML IV 100 ML ONE ×2 (15:47→16:43)
[2021-02-01] MEDS ORDERED: REGEN-COV VIAL 10 ML, DRUG FILTER EXTENSION SET * 1 EA in NS 100 ML IV 100 ML IV ONE ×2 (16:37)
[2021-02-01] MEDS ORDERED: TYLENOL 325 MG TAB PO ONE ×2 (16:37→16:43)
[2021-02-01] MEDS ORDERED: SOLU-Medrol 125 MG VIAL IVP ONE (16:37)
--- NOTE | 2021-02-01 16:38 | CT ---
HISTORYD-DIMERSTUDYCTA CHESTCOMPARISONNoneTECHNIQUEAxial images through the chest was performed after the administration of contrast. 3D MIPS images were performed. CT scan was performed following ALARA (As low as Reasonably Achievable).Coronal and Sagittal reformatted images were performed.FINDINGSThe thyroid gland is small. There is no significant axillary adenopathy. There is pretracheal lymph node measuring in short axis 1.4 centimeter. There is also a sub carinal lymph node measuring 1.4 centimeters. The ascending aorta measures approximately 4 centimeters. There is no pleural or pericardial effusions.The spleen is nonenlarged. There is no evidence of adrenal masses, the pancreas demonstrate no focal abnormality. The gallbladder is contracted. The stomach is not distended. There is a small 1.3 centimeters right adrenal nodule. The left adrenal gland is unremarkableThere is no evidence of pulmonary embolism. No focal filling defects in the pulmonary arteries.Lung windows there are some patchy ground-glass radiopacities in the bases likely atelectasis, there is a small area of honeycombing in the periphery of the right upper lobe with ground-glass radiopacities probably chronic changes. No evidence of dominant lung nodulesNo dominant alveolar radiopacities.Bone windows no evidence of aggressive bone lesionsNo acute fractures.IMPRESSIONNo radiographic evidence of pulmonary embolism. Mild mediastinal adenopathyAscending aorta in the upper limits of normalPatchy bibasal atelectasis. Some nonspecific ground-glass radiopacities in the dependent upper lobes, small honeycombing in the periphery of the right upper lobe could be sequela of a prior infection. Active viral pneumonia is also in the differentialElectronically signed by: Leelee Marie (Feb 01, 2021 16:35:39)
[2021-02-01] MEDS ORDERED: SOLU-Medrol 125 MG VIAL ONE (16:43)
[2021-02-01] MEDS ORDERED: REGEN-COV VIAL ONE (16:43)
[2021-02-01] MEDS ORDERED: PULMICORT NEB TX 0.5 MG NEB ONE (19:32)
[2021-02-01] MEDS ORDERED: BROVANA ONE (19:33)
[2021-02-01] MEDS: LIPITOR TAB 40 MG PO SCH (20:56)
[2021-02-01] MEDS: PriLOSEC PO SCH (20:56)
[2021-02-01] MEDS: PULMICORT NEB TX 0.5 MG NEB SCH (21:22)
[2021-02-01] MEDS: BROVANA IN SCH (21:22)
[2021-02-02] MEDS: NS 1000 ML 1,000 ML IV SCH ×4 (04:11→23:04)
[2021-02-02] MEDS ORDERED: TYLENOL 325 MG TAB PO ONE (05:35)
[2021-02-02] MEDS: TYLENOL 325 MG TAB PO PRN ×2 (05:49→20:55)
[2021-02-02 05:59] LABS: BASOPHILS % (AUTO) 0.1 % (0.2-1.0); HEMATOCRIT 31.4 % (42.0-54.0); HEMOGLOBIN 9.9 g/dL (13.5-18.0); LYMPHOCYTES # (AUTO) 0.5 X10^3/uL (1.3-2.9); LYMPHOCYTES % (AUTO) 3.1 % (21.0-51.0); MEAN CORPUSCULAR HEMOGLOBIN 23.7 pg (27.0-34.0); MEAN CORPUSCULAR HGB CONC 31.5 g/dL (33.0-35.0); MEAN CORPUSCULAR VOLUME 75.2 fL (80.0-100.0); MEAN PLATELET VOLUME 7.2 fL (7.4-11.0); MONOCYTES # (AUTO) 0.8 x10^3/uL (0.3-0.8); MONOCYTES % (AUTO) 5.1 % (0.0-13.0); NEUTROPHILS # (AUTO) 13.7 x10^3/uL (2.2-4.8); NEUTROPHILS % (AUTO) 91.7 % (42.0-75.0); PLATELET COUNT 310 X10^3/uL (150.0-450.0); RED BLOOD COUNT 4.18 X10^6/uL (4.7-6.0); RED CELL DISTRIBUTION WIDTH 20.2 % (11.6-16.5)
[2021-02-02 06:29] LABS: ALANINE AMINOTRANSFERASE 29 Units/L (12-78); ALBUMIN 3.1 g/dL (3.4-5.0); ALKALINE PHOSPHATASE 57 Units/L (46-116); ASPARTATE AMINO TRANSFERASE 27 Units/L (15-37); BAND NEUTROPHILS % 5 % (0-10); BLOOD UREA NITROGEN 22 mg/dL (7-18); CARBON DIOXIDE 23.1 mmol/L (21-32); CHLORIDE 102 mmol/L (98-107); COR CA(FOR HYPOALB) 8.7 mg/dL (8.5-10.1); COR NA(FOR HYPERGLY) 137 mmol/L (136-145); CREATININE 0.97 mg/dL (0.70-1.30); SODIUM 136 mmol/L (136-145); TOTAL PROTEIN 7.1 g/dL (6.4-8.2); eGFR NON BLACK RACES > 60 (>60)
[2021-02-02 06:30] LABS: PLATELET MORPHOLOGY COMMENT NORMAL (NORMAL)
[2021-02-02 06:32] LABS: ANISOCYTOSIS 1+; HYPOCHROMASIA SLIGHT; MICROCYTOSIS SLIGHT; OVALOCYTES PRESENT
[2021-02-02] MEDS: PULMICORT NEB TX 0.5 MG NEB SCH ×2 (08:40→20:56)
[2021-02-02] MEDS: BROVANA IN SCH (08:40)
[2021-02-02] MEDS: LOTENSIN TAB 10 MG PO SCH (09:12)
[2021-02-02] MEDS: NORVASC TAB 5 MG PO SCH (09:12)
[2021-02-02] MEDS: TOPROL XL PO SCH (09:14)
[2021-02-02] MEDS: PriLOSEC PO SCH ×2 (09:15→20:55)
[2021-02-02] MEDS ORDERED: LEVAQUIN PREMIX IV 500 MG 500 MG/100 ML BAG IV ONE (09:59)
[2021-02-02] MEDS: SOLU-Medrol 40 MG VIAL IVP SCH ×3 (10:30→21:06)
[2021-02-02] MEDS: IVERMECTIN PO SCH (15:35)
[2021-02-02] MEDS ORDERED: ROBITUSSIN DM PO PRN (20:04)
[2021-02-02] MEDS ORDERED: ROBITUSSIN DM ONE (20:12)
[2021-02-02] MEDS: LIPITOR TAB 40 MG PO SCH (20:55)
[2021-02-02] MEDS: ACCUNEB 1.25 MG NEBULE NEB SCH (20:56)
[2021-02-03 04:27] LABS: ABG ALLEN TEST POS; ABG BASE EXCESS -4.4 mmol/L (-2.0-2.0)
[2021-02-03] MEDS: ACCUNEB 1.25 MG NEBULE NEB SCH ×3 (05:03→12:05)
[2021-02-03 05:33] LABS: BASOPHILS % (AUTO) 0.1 % (0.2-1.0); HEMATOCRIT 24.3 % (42.0-54.0); LYMPHOCYTES # (AUTO) 0.4 X10^3/uL (1.3-2.9); MEAN CORPUSCULAR HEMOGLOBIN 24.1 pg (27.0-34.0); MEAN CORPUSCULAR VOLUME 75.2 fL (80.0-100.0); MEAN PLATELET VOLUME 7.2 fL (7.4-11.0); MONOCYTES # (AUTO) 0.3 x10^3/uL (0.3-0.8); MONOCYTES % (AUTO) 2.3 % (0.0-13.0); NEUTROPHILS # (AUTO) 10.1 x10^3/uL (2.2-4.8); NEUTROPHILS % (AUTO) 93.6 % (42.0-75.0); PLATELET COUNT 283 X10^3/uL (150.0-450.0); RED BLOOD COUNT 3.23 X10^6/uL (4.7-6.0); RED CELL DISTRIBUTION WIDTH 20.5 % (11.6-16.5); WHITE BLOOD COUNT 10.8 X10^3/uL (3.6-10.0)
[2021-02-03 05:49] LABS: ALANINE AMINOTRANSFERASE 23 Units/L (12-78); ALBUMIN 2.3 g/dL (3.4-5.0); ALKALINE PHOSPHATASE 43 Units/L (46-116); ASPARTATE AMINO TRANSFERASE 20 Units/L (15-37); BLOOD UREA NITROGEN 26 mg/dL (7-18); CALCIUM 7.6 mg/dL (8.5-10.1); CARBON DIOXIDE 22.1 mmol/L (21-32); CHLORIDE 107 mmol/L (98-107); COR NA(FOR HYPERGLY) 140 mmol/L (136-145); CREATININE 0.99 mg/dL (0.70-1.30); SODIUM 139 mmol/L (136-145); TOTAL PROTEIN 5.9 g/dL (6.4-8.2); eGFR NON BLACK RACES > 60 (>60)
[2021-02-03 06:05] LABS: BAND NEUTROPHILS % 1 % (0-10); HEMOGLOBIN 7.8 g/dL (13.5-18.0); PLATELET MORPHOLOGY COMMENT NORMAL (NORMAL)
[2021-02-03 06:06] LABS: ANISOCYTOSIS 1+; HYPOCHROMASIA 1+; MICROCYTOSIS SLIGHT; OVALOCYTES PRESENT
[2021-02-03] MEDS: SOLU-Medrol 40 MG VIAL IVP SCH (06:12)
--- NOTE | 2021-02-03 07:55 | RAD ---
HISTORYSOB HX: NH, HTN, COPD, AAA, PROSTATE CANCER SX: ABD, APPENDECTOMY, CABGSTUDYCHEST, 1 VIEWCOMPARISONOne-view chest February 01, 2021FINDINGSThe lungs are adequately expanded. Tracheal airway is normal. Vascularity is normal. The mediastinum is normal. New interstitial process is developing laterally in the right upper lung field which is a change from February 01, 2021. There is also mild increased interstitial markings in the lung bases since the last filmNo pneumothorax.No pleural effusion.No consolidation.Cardiomediastinal silhouette is normal in size and position. There are sternotomy wires presentOsseous structures and soft tissues are unremarkable.IMPRESSIONMild increase in the interstitial prominence right upper lobe laterally in left lower lobe compared to the last study of February 01, 2021. Findings are concerning for atypical infection including viral etiologies.Postsurgical chest status post sternotomy..Electronically signed by: ANA M SEARS (Feb 03, 2021 07:52:45)
[2021-02-03] MEDS: PULMICORT NEB TX 0.5 MG NEB SCH (08:20)
[2021-02-03] MEDS: NS 1000 ML 1,000 ML IV SCH (08:56)
[2021-02-03] MEDS ORDERED: LEVAQUIN PREMIX IV 500 MG 500 MG/100 ML BAG IV SCH (09:00)
[2021-02-03] MEDS: PriLOSEC PO SCH (09:23)
[2021-02-03] MEDS: IVERMECTIN PO SCH (09:23)
[2021-02-03] MEDS: TOPROL XL PO SCH (09:24)
[2021-02-03] MEDS: LOTENSIN TAB 10 MG PO SCH (09:24)
[2021-02-03] MEDS: NORVASC TAB 5 MG PO SCH (09:24)
--- NOTE | 2021-02-03 10:00 | DR.H&P ---
H&P - History & Physical for Day of: H&P Date: 02/01/21 - Chief Complaint Chief Complaint: WEAKNESS, DIZZINESS, NAUSEA, VOMITING - History of Present Illness History of Present Illness: IS A 80 YEAR OLD PATIENT OF OURS. HE PRESENTED TO THE ER WITH COMPLAINTS OF WEAKNESS, DIZZINESS, NAUSEA, AND VOMITING. PATIENT REPORTS THAT SYMPTOMS STARTED 3-4 DAYS AGO AND HAVE PROGRESSIVELY GOTTEN WORSE. HE REPORTS FALLING AT HOME TODAY AND HITTING HIS HEAD. HE DENIES LOC. HIS PMH INCLUDES HTN, KIDNEY STONES, [place], APPENDECTOMY, CABG, AND LITHOTRIPSY. ON ARRIVAL TO THE ER, VITALS WERE 100.5-100-18-88%RA-119/69. HE WAS PLACED ON NASAL CANNULA AT 2 LPM AND SATURATIONS INCREASED TO 93%. LABS WERE OBTAINED. ABNORMAL LAB VALUES INCLUDE THE FOLLOWING: WBC 10.9, RBC 4.22, HGB 10.0, HCT 31.7, D-DIMER 0.63, SODIUM 135, BUN 21, GLUCOSE 121, CALCIUM 8.2, CRP 12.50, BNP 203. CARDIAC ENZYMES WERE WITHIN NORMAL LIMITS. URINALYSIS WAS OBTAINED AND WAS UNREMARKABLE. COVID-19 POSITIVE. AN ABG WAS OBTAINED AND REVEALED: PH 7.430, PC02 38, P02 56, HC03 25.2, 02 SAT 90, A-A GRADIENT 46, FI02 21.0. EKG WAS OBTAINED AND REVEALED: SINUS RHYTHM WITH HR 99. BRAIN CT REVEALED: Intra-axial changes of advancing chronological age without acute intracranial process. Severe chronic sphenoid sinusitis. ABDOMEN/PELVIS CT REVEALED: 1.No definite source of acute pain or nausea identified. CHEST XRAY REVEALED: 1. Bilateral interstitial prominence. Findings may represent atypical infection, including viral etiologies. A CHEST CTA WAS THEN OBTAINED AND REVEALED: No radiographic evidence of pulmonary embolism. Mild mediastinal adenopathy. Ascending aorta in the upper limits of normal. Patchy bibasal atelectasis. Some nonspecific ground-glass radiopacities in the dependent upper lobes, small honeycombing in the periphery of the right upper lobe could be sequela of a prior infection. Active viral pneumonia is also in the differential. IN THE ER, HE WAS GIVEN ZOFRAN 4MG IV X 1 DOSE, TORADOL 30MG IV X 1 DOSE, REGEN-COV IV X 1 DOSE, SOLU-MEDROL 125MG IV X 1 DOSE, TYLENOL 650MG PO X 1 DOSE. HE WAS ADMITTED TO THE HOSPITAL FOR FURTHER EVALUATION AND TREATMENT OF COVID PNEUMONIA, HYPOXIA, N/V, DIZZINESS. HE WAS STARTED ON NORMAL SALINE AT 125 ML/HR, LEVAQUIN 500MG IV DAILY, IVERMECTIN 18MG PO DAILY X 5 DAYS, ALBUTEROL NEBS TID, PULMICORT NEBS BID, ROBITUSSIN DM 10ML PO Q4H PRN, SOLU- MEDROL 40MG IV Q8H, AND HIS HOME MEDICATIONS OF NORVASC, LIPITOR, LOTENSIN, TOPROL, AND PRILOSEC WERE RESUMED. OTHERWISE, WE PLAN TO FOLLOW UP WITH AM LABS AND CONTINUE TO MONITOR. TIME SPENT ON CLINICAL ASSESSMENT, REVIEWING LABS AND IMAGING, DECISION MAKING, AND DOCUMENTATION GREATER THAN 75 MINUTES. - Past Medical History Past Medical History: [place], Hypertension, Kidney Stones Additional Medical History: Diverticulosis, AAA, BPH, Back Pain, Degenerative Disc Disease, Prostate Cancer in 2007 - Past Surgical History Surgical History: Abdominal Surgery, Appendectomy, CABG/Valve Surgery, Lithotripsy - Family History Family Medical History: [place], Hypertension - Social History Does patient currently use any type of tobacco product: No Have you used tobacco products in the last 12 months: No Type of Tobacco Use: Cigarettes How many years tobacco product used: 2 Does any household member use tobacco: No Alcohol Use: None Drug Use: None - Medications Home Medications: No Known Drug Allergies Allergy (Verified 10/27/16 15:58) CONTINUE taking the following medications azithromycin 250 mg PO DAILY 02/01/21 [History] codeine-guaifenesin 10 ml PO Q4-6H PRN 02/01/21 [History] New Prescriptions albuterol sulfate 1.25 mg INHALATION TID #50 ml 02/02/21 [Rx] budesonide 1 ea NEB BIDRESP #50 ml 02/02/21 [Rx] ivermectin 18 mg PO DAILY #30 tab 02/02/21 [Rx] levofloxacin 500 mg PO DAILY #10 tab 02/02/21 [Rx] methylprednisolone [Medrol (Elvis)] See Rx Instructions .ROUTE .COMPLEX #1 ea 02/02/21 [Rx] apixaban [Eliquis] 2.5 mg PO BID #60 tab 02/03/21 [Rx] iron-folic acid-mv, min cmb#15 [Hemocyte-Plus] 1 cap PO DAILY #30 cap 02/03/21 [Rx] - Review of Systems Constitutional: Fever, Weakness Eyes: No Symptoms Reported ENT: No Symptoms Reported Respiratory: Shortness of Breath Cardiovascular: Light Headedness Gastrointestinal: See HPI, Nausea, Vomiting Genitourinary: No Symptoms Reported Musculoskeletal: No Symptoms Reported Skin: No Symptoms Reported Neurological: Weakness - Physical Exam Vital Signs: Temperature 97.7 F Pulse Rate [Apical] 50 Pulse Rate 83 Respiratory Rate 27 Blood Pressure [Right Arm] 129/63 Blood Pressure [Left Arm] 136/67 Blood Pressure 112/56 O2 Sat by Pulse Oximetry 91 Oriented: Normal Eyes: Normal Ear: Normal Nose: Normal Throat: Normal Respiratory: Diminished Throughout Cardiovascular: Normal : Normal Auscultation: Bowel Sounds: Normal Palpation: Normal Tenderness: Normal Skin: Wound (RIGHT ELBOW AND LEFT UPPER ARM SKIN TEAR ) Musculoskeletal: Normal Psychiatric: Normal Mood Description: Calm Affect: Normal Speech Pattern: Clear - Assessment/Plan (1) Pneumonia due to COVID-19 virus Status: Acute Plan: ADMIT, SUPPLEMENTAL OXYGEN, NORMAL SALINE AT 125 ML/HR, LEVAQUIN 500MG IV DAILY, IVERMECTIN 18MG PO DAILY X 5 DAYS, ALBUTEROL NEBS TID, PULMICORT NEBS BID, ROBITUSSIN DM 10ML PO Q4H PRN, SOLU-MEDROL 40MG IV Q8H, AND HIS HOME MEDICATIONS OF NORVASC, LIPITOR, LOTENSIN, TOPROL, AND PRILOSEC WERE RESUMED. (2) Hypoxia Status: Acute (3) Nausea and vomiting Qualifiers: Vomiting Intractability: unspecified Status: Acute (4) Dizziness Status: Acute - Allergies Allergies/Adverse Reactions: Allergies Allergy/AdvReac Type Severity Reaction Status Date / Time No Known Drug Allergies Allergy Verified 10/27/16 15:58
[2021-02-03 11:21] VITALS: BP 106/53
== END 2021-02-03 13:30 | disposition home or self-care (01) | DRG 177 ==
LOC: ER 10:20 → ICU 16:45
PROVIDERS: ADMIT Internal Medicine; ATTEND Internal Medicine
DX: R79.82 Elevated C-reactive protein (CRP); S09.90XA Unspecified injury of head, initial encounter; R42 Dizziness and giddiness; R79.89 Other specified abnormal findings of blood chemistry; Y92.9 Unspecified place or not applicable; R94.31 Abnormal electrocardiogram [ECG] [EKG]; U07.1 COVID-19; W18.39XA Other fall on same level, initial encounter; J12.82 Pneumonia due to coronavirus disease 2019

== ENCOUNTER 2024-11-16 14:42 | Inpatient (IN) ==
[2024-11-16 15:31] LABS: MEAN PLATELET VOLUME 7.6 fL (7.4-11.0)
--- NOTE | 2024-11-16 15:33 | DR.DIZZY ---
HPI Time seen Time Seen by Provider: 11/16/24 15:21 PCP Primary Care Physician: Kojo Complaint Chief Complaint Doctor Comments: 84 yo M, hx of anemia requiring multiple transfusions in the past, had recent aortic valve replacement on 10/18/2024, states he has had increasing weakness ever since his aortic valve surgery, accomp by dyspnea with exertion. Denies chest pain. Denies other complaints. Denies rectal bleeding. Pt had been taking iron for iron-def anemia. Chief Complaint:: Pt presents to ED with her daughter; pt had labs done per PCP yesterday, hgb 5.6. Pt states over the last month he has "been getting weaker; my feet and legs tingle". Pt on home O2 at all times at 2L [place]. Pt states since his heart valve replacement surgery on 10/18, the weakness has progressively worsened. Pt states he did take his AM meds this morning; he took lasix and potassium this AM that he takes QOD. COVID-19 Coronavirus risk:travel/contact w/high risk person: No Has patient experienced Coronavirus symptoms: No Source History Provided: Patient and Family Member Mode of Arrival Mode of Arrival: Wheelchair Timing Onset of Chief Complaint: 10/18/24 Context Stroke Symptoms: None PMH PMH Past Medical History: Yes Past Medical History: Arthritis, COPD, Coronary Artery Disease, Dyslipidemia, GERD, Hypertension, Kidney Stones and CT Past Surgical History: Yes Surgical History: Angioplasty/Stents, Appendectomy, CABG/Valve Surgery and Lithotripsy Past Surgical History Comment: hernia repair Family History History of Family Medical Conditions: Yes Family Medical History: CT, Coronary Artery Disease and Hypertension Social History Does patient currently use any type of tobacco product: No Have you used tobacco products in the last 12 months: No Does any household member use tobacco: No Alcohol Use: None Do you use any recreational Drugs:: No Lives Where: Home Travel Risk Coronavirus risk:travel/contact w/high risk person: No Has patient experienced Coronavirus symptoms: No Infectious screening In the last 2 months have you had wt loss of >10#?: NO Have you had fever, night sweats or hemotysis?: No Have you traveled outside the country in the last 6 months?: No Isolation: Standard ROS Review of Systems Constitutional: Weakness Respiratoy: Short of Breath (with exertion) All Other Systems: Reviewed and Negative PE Vital Signs Vitals: Vital Signs Temperature 98.3 F Pulse Rate 82 Pulse Rate 81 Pulse Rate 83 Pulse Rate 85 Pulse Rate 87 Pulse Rate 83 Pulse Rate 92 Pulse Rate 89 Respiratory Rate 42 Respiratory Rate 33 Respiratory Rate 38 Respiratory Rate 43 Respiratory Rate 40 Respiratory Rate 34 Respiratory Rate 20 Blood Pressure 131/58 Blood Pressure 104/51 Blood Pressure 106/54 O2 Sat by Pulse Oximetry 97 O2 Sat by Pulse Oximetry 97 O2 Sat by Pulse Oximetry 95 O2 Sat by Pulse Oximetry 96 O2 Sat by Pulse Oximetry 96 O2 Sat by Pulse Oximetry 96 O2 Sat by Pulse Oximetry 93 O2 Sat by Pulse Oximetry 95 General Limitations: No Limitations General Appearance: Alert and In No Apparent Distress Head Head Exam: Normal Inspection Eyes Eye exam: Normal Appearance ENT ENT Exam: Normal Exam, Normal Oropharynx and Normal External Ear Exam Neck Neck Exam: Normal Inspection and Full ROM Chest Chest Inspection: Normal Inspection Respiratory Respiratory Exam: Normal Lung Sounds Bilat Cardiovascular Cardiovascular Exam: Regular Rate and Normal Rhythm Abdominal Exam Abdominal Exam: Normal Inspection, Normal Bowel Sounds and Soft Rectal Rectal Exam: Deferred Extremeties Extremities Exam: Normal Inspection and Full ROM Back Back Exam: Normal Inspection and Full ROM Neurologic Neurological Exam: Alert and Oriented X3 Psychiatric Psychiatric Exam: Normal Affect and Normal Mood Skin Skin Exam: Warm, Dry, Intact and Normal Color ROR Labs Reviewed Laboratory Results Reviewed?: Yes 11/16/24 15:06 11/16/24 15:06 Laboratory: WBC 6.1 X10^3/uL (3.6-10.0) 11/16/24 15:06 RBC 2.26 X10^6/uL (4.7-6.0) L 11/16/24 15:06 Hgb 6.1 g/dL (13.5-18.0) L* 11/16/24 15:06 Hct 20.3 % (42.0-54.0) L 11/16/24 15:06 MCV 89.8 fL (80.0-100.0) 11/16/24 15:06 MCH 27.1 pg (27.0-34.0) 11/16/24 15:06 MCHC 30.1 g/dL (33.0-35.0) L 11/16/24 15:06 RDW 18.6 % (11.6-16.5) H 11/16/24 15:06 Plt Count 245 X10^3/uL (150.0-450.0) 11/16/24 15:06 MPV 7.6 fL (7.4-11.0) 11/16/24 15:06 Neut % (Auto) 82.7 % (42.0-75.0) H 11/16/24 15:06 Lymph % (Auto) 6.7 % (21.0-51.0) L 11/16/24 15:06 [place] % (Auto) 8.9 % (0.0-13.0) 11/16/24 15:06 Eos % (Auto) 1.4 % (0.9-2.9) 11/16/24 15:06 Baso % (Auto) 0.3 % (0.2-1.0) 11/16/24 15:06 Neut # (Auto) 5.0 x10^3/uL (2.2-4.8) H 11/16/24 15:06 Lymph # (Auto) 0.4 X10^3/uL (1.3-2.9) L 11/16/24 15:06 [place] # (Auto) 0.5 x10^3/uL (0.3-0.8) 11/16/24 15:06 Eos # (Auto) 0.1 x10^3/uL (0.0-0.2) 11/16/24 15:06 Baso # (Auto) 0.0 X10^3/uL (0.0-0.1) 11/16/24 15:06 Absolute Nucleated RBC 0.4 /100WBC 11/16/24 15:06 PT 15.1 SECONDS (11.8-14.3) 11/16/24 15:06 INR Target Range - 11/16/24 15:06 INR 1.17 (0.8-1.3) 11/16/24 15:06 APTT 29.3 SECONDS (22.9-36.5) 11/16/24 15:06 PTT Comment - 11/16/24 15:06 Sodium 142 mmol/L (136-145) 11/16/24 15:06 Corrected Sodium 143 mmol/L (136-145) 11/16/24 15:06 Potassium 4.0 mmol/L (3.5-5.1) 11/16/24 15:06 Chloride 106 mmol/L (98-107) 11/16/24 15:06 Carbon Dioxide 30.5 mmol/L (21-32) 11/16/24 15:06 BUN 18 mg/dL (7-18) 11/16/24 15:06 Creatinine 0.97 mg/dL (0.70-1.30) 11/16/24 15:06 Est GFR (MDRD) Af Amer > 60 (>60) 11/16/24 15:06 Est GFR (MDRD) Non-Af > 60 (>60) 11/16/24 15:06 Glucose 121 mg/dL (65-99) H 11/16/24 15:06 Calcium 8.7 mg/dL (8.5-10.1) 11/16/24 15:06 Corrected Calcium TNP 11/16/24 15:06 Magnesium 2.0 mg/dL (2.0-2.9) 11/16/24 15:06 Total Bilirubin 0.30 mg/dL (0.2-1.0) 11/16/24 15:06 AST 23 Units/L (15-37) 11/16/24 15:06 ALT 27 Units/L (12-78) 11/16/24 15:06 Alkaline Phosphatase 90 Units/L (46-116) 11/16/24 15:06 Creatine Kinase 53 Units/L (39-308) 11/16/24 15:06 Troponin I High Sens 17.8 ng/L (4.0-60.0) 11/16/24 15:06 B-Natriuretic Peptide 507 pg/mL (0-79) H 11/16/24 15:06 Total Protein 7.2 g/dL (6.4-8.2) 11/16/24 15:06 Albumin 3.4 g/dL (3.4-5.0) 11/16/24 15:06 Globulin 3.8 g/dL (2.5-4.5) 11/16/24 15:06 Albumin/Globulin Ratio 0.9 Ratio (1.1-2.1) L 11/16/24 15:06 Opioid Opioid Risk Tool Age (Galo box if 16-45): No History of Preadolescent Sexual Abuse: No Total: 0 Total Score Risk Category: Low Risk Copyright: Philippe RUSSELL predicting aberrant behaviors Discharge Plan Diagnosis Discharge Problem: Symptomatic anemia, Normocytic anemia, Dyspnea Discharge Problem: (Ruled Out): Abdominal pain, Acute diverticulitis Discharge Plan Patient Disposition: ADMITTED INPATIENT Condition: Stable Orders to Discharge Patient Discharge Orders: Transfer (Routine); Ordered 11/16/24 Ordered By: Chin Fink
[2024-11-16 15:34] LABS: RED CELL DISTRIBUTION WIDTH 18.6 % (11.6-16.5)
[2024-11-16 15:40] LABS: COR NA(FOR HYPERGLY) 143 mmol/L (136-145); CREATININE 0.97 mg/dL (0.70-1.30); eGFR NON BLACK RACES > 60 (>60)
[2024-11-16 15:45] LABS: INR 1.17 (0.8-1.3)
--- NOTE | 2024-11-16 16:27 | EKG ---
Test Reason : dyspnea Blood Pressure : */* mmHG Vent. Rate : 84 BPM Atrial Rate : * BPM P-R Int : * ms QRS Dur : 102 ms QT Int : 384 ms P-R-T Axes : * -14 -81 degrees QTc Int : 453 ms Atrial fibrillation Minimal voltage criteria for LVH, may be normal variant ( Julian product ) Abnormal ECG When compared with ECG of 15-JUL-2024 06:07, Non-specific change in ST segment in Anterior leads T wave inversion now evident in Anterolateral leads QT has shortened Confirmed by Tomas Sol MD ([id number]) on 11/17/2024 5:49:09 AM Referred By: Confirmed By: Tomas Sol MD
[2024-11-16] MEDS: CONSULT PHARMACY - POTASSIUM & MAGNESIUM XX SCH (17:23)
[2024-11-16] MEDS: NS 1,000 ML IV 1,000 ML IV SCH (17:43)
--- NOTE | 2024-11-16 18:23 | RAD ---
EXAM: CHEST, 1 VIEW HISTORY: over the last month he has "been getting weaker; my feet and legs tingle".; COMPARISON: Prior study or studies were utilized for comparison during interpretation with the most relevant dated 07/15/2024 TECHNIQUE: CHEST, 1 VIEW FINDINGS: Chest: Lines and tubes: Cardiac leads overlie the chest. Mediastinum: Median sternotomy wires are present. The cardiac shadow is enlarged. Pulmonary vessels: There is pulmonary vascular congestion. Lung neff: Patchy opacities are seen Pleura: No effusion. No pneumothorax. Bones and soft tissues: No acute osseous or soft tissue abnormality. IMPRESSION: 1. Findings suggest heart failure THIS IS AN ELECTRONICALLY VERIFIED FINAL REPORT 11/16/2024 6:19 PM - Electronically signed by John Gastelum MD
[2024-11-16 20:33] VITALS: BMI 27.7
[2024-11-16] MEDS: TYLENOL 325 MG TAB PO PRN (21:28)
[2024-11-17 05:16] LABS: COR CA(FOR HYPOALB) 9.3 mg/dL (8.5-10.1); CREATININE 0.80 mg/dL (0.70-1.30); eGFR NON BLACK RACES > 60 (>60)
[2024-11-17 05:17] LABS: MEAN PLATELET VOLUME 7.8 fL (7.4-11.0); RED CELL DISTRIBUTION WIDTH 18.5 % (11.6-16.5)
[2024-11-17] MEDS ORDERED: PHARMACY CONSULT XX SCH (09:00)
[2024-11-17] MEDS: LIPITOR TAB 40 MG PO SCH (09:14)
[2024-11-17] MEDS: IMDUR PO SCH (09:14)
[2024-11-17] MEDS: LOTENSIN TAB 10 MG PO SCH (09:14)
[2024-11-17] MEDS: LASIX PO SCH (09:14)
[2024-11-17] MEDS: PLAVIX PO SCH (09:14)
[2024-11-17] MEDS: TOPROL XL PO SCH (09:14)
[2024-11-17] MEDS: PROSCAR PO SCH (09:14)
[2024-11-17] MEDS: PROTONIX INJ 40 MG VIAL IVP SCH (09:15)
[2024-11-17 09:38] LABS: RETICULOCYTE % 4.7 % (0.8-2.2)
--- NOTE | 2024-11-17 10:47 | DR.H&P ---
H&P History & Physical for Day of: H&P Date: 11/17/24 Chief Complaint Chief Complaint: weakness shortness of breath History of Present Illness History of Present Illness: Patient is a 84-year-old male with a past medical history of aortic valve replacement, CHF, COPD(home 2L), CAD, hypertension, hyperlipidemia, iron deficiency anemia, presenting with increasing weakness and shortness of breath. He had outpatient labs that revealed a hemoglobin that was 6.1. He was admitted for symptomatic anemia. Labs/imaging: WBC 4.1, hemoglobin 5.5, platelets 208, sodium 143, potassium 3.9, creatinine 0.80, glucose 86, troponin negative, BNP 507, chest x-ray consistent with CHF findings. Patient was admitted for symptomatic anemia due to iron deficiency anemia. Will order anemia panel, he has antibodies to certain blood types and we are awaiting 2 units for transfusion. Will transfuse when arrived. Will also order another 4 units. Will restart home medications. Will also order Hemoccult. He does take iron supplements. Continue IV fluids. Otherwise continue with current treatment plan. Continue closely monitor and follow-up labs/imaging. Past Medical History Past Medical History: Arthritis, COPD, Coronary Artery Disease, Dyslipidemia, GERD, Hypertension, Kidney Stones and [place] Additional Medical History: Diverticulosis, AAA, BPH, Back Pain, Degenerative Disc Disease, Prostate Cancer in 2007 Past Surgical History Surgical History: Angioplasty/Stents, CABG/Valve Surgery and Lithotripsy Family History Family Medical History: [place] and Hypertension Social History Does patient currently use any type of tobacco product: No Have you used tobacco products in the last 12 months: No Type of Tobacco Use: None How many years tobacco product used: 2 Does any household member use tobacco: No Alcohol Use: None Drug Use: None Medications Home Medications: Home Medications Medication Instructions Recorded Confirmed Type benazepril 10 mg tablet 10 mg PO DAILY 11/11/2210/05 History metoprolol succinate 50 mg 50 mg PO DAILY 11/11/2210/05 History tablet,extended release 24 hr clopidogrel 75 mg tablet 75 mg PO QDAY 01/10/2411/16 History esomeprazole magnesium 40 mg 40 mg PO QDAY 01/10/24 History capsule,delayed release isosorbide mononitrate 30 mg 30 mg PO QDAY 01/10/24 History tablet,extended release 24 hr finasteride 5 mg tablet 5 mg PO QDAY 07/15/24 History multivit-minerals no.73-iron 2 cap PO DAILY 07/15/24 0 11/16/24 History fumarate 106 mg-folic acid 1 mg capsule (Hemocyte-Plus) atorvastatin 40 mg tablet 40 mg PO QDAY 11/16/2411/16 History mupirocin 2 % topical ointment 1 applic topical BID-TI D 11/16/24 11/16/24 History Allergies Allergies Allergy/AdvReac Type Severity Reaction Status Date / Time No Known Drug Allergies Allergy Unknown Verified 11/16/24 15:16 Labs 11/17/24 04:25 11/17/24 04: Labs: Laboratory WBC 4.1 X10^3/uL (3.6-10.0) 11/17/24 04:25 RBC 2.04 X10^6/uL (4.7-6.0) L 11/17/24 04:25 Hgb 5.5 g/dL (13.5-18.0) L* 11/17/24 04:25 Hct 18.1 % (42.0-54.0) L* 11/17/24 04:25 MCV 88.9 fL (80.0-100.0) 11/17/24 04:25 MCH 27.0 pg (27.0-34.0) 11/17/24 04:25 MCHC 30.4 g/dL (33.0-35.0) L 11/17/24 04:25 RDW 18.5 % (11.6-16.5) H 11/17/24 04:25 Plt Count 208 X10^3/uL (150.0-450.0) 11/17/24 04:25 MPV 7.8 fL (7.4-11.0) 11/17/24 04:25 Neut % (Auto) 62.6 % (42.0-75.0) 11/17/24 04:25 Lymph % (Auto) 19.3 % (21.0-51.0) L 11/17/24 04:25 [place] % (Auto) 13.5 % (0.0-13.0) H 11/17/24 04:25 Eos % (Auto) 4.0 % (0.9-2.9) H 11/17/24 04:25 Baso % (Auto) 0.6 % (0.2-1.0) 11/17/24 04:25 Neut # (Auto) 2.6 x10^3/uL (2.2-4.8) 11/17/24 04:25 Lymph # (Auto) 0.8 X10^3/uL (1.3-2.9) L 11/17/24 04:25 [place] # (Auto) 0.5 x10^3/uL (0.3-0.8) 11/17/24 04:25 Eos # (Auto) 0.2 x10^3/uL (0.0-0.2) 11/17/24 04:25 Baso # (Auto) 0.0 X10^3/uL (0.0-0.1) 11/17/24 04:25 Absolute Nucleated RBC 0.3 /100WBC 11/17/24 04:25 Absolute Retic 0.0964 10^6/uL 11/17/24 04:25 Percent Retic 4.70 % (0.8-2.2) H 11/17/24 04:25 PT 15.1 SECONDS (11.8-14.3) 11/16/24 15:06 INR Target Range - 11/16/24 15:06 INR 1.17 (0.8-1.3) 11/16/24 15:06 APTT 29.3 SECONDS (22.9-36.5) 11/16/24 15:06 PTT Comment - 11/16/24 15:06 Sodium 143 mmol/L (136-145) 11/17/24 04:25 Corrected Sodium TNP 11/17/24 04:25 Potassium 3.9 mmol/L (3.5-5.1) 11/17/24 04:25 Chloride 109 mmol/L (98-107) H 11/17/24 04:25 Carbon Dioxide 30.1 mmol/L (21-32) 11/17/24 04:25 BUN 15 mg/dL (7-18) 11/17/24 04:25 Creatinine 0.80 mg/dL (0.70-1.30) 11/17/24 04:25 Est GFR (MDRD) Af Amer > 60 (>60) 11/17/24 04:25 Est GFR (MDRD) Non-Af > 60 (>60) 11/17/24 04:25 Glucose 86 mg/dL (65-99) 11/17/24 04:25 Calcium 8.3 mg/dL (8.5-10.1) L 11/17/24 04:25 Corrected Calcium 9.3 mg/dL (8.5-10.1) 11/17/24 04:25 Magnesium 2.0 mg/dL (2.0-2.9) 11/16/24 15:06 Iron 12 ug/dL (50-175) L 11/17/24 04:25 TIBC 304 ug/dL (250-450) 11/17/24 04:25 Transferrin 234 mg/dL (202-364) 11/17/24 04:25 Ferritin 29 ng/mL (26-388) 11/17/24 04:25 Total Bilirubin 0.30 mg/dL (0.2-1.0) 11/17/24 04:25 AST 15 Units/L (15-37) 11/17/24 04:25 ALT 20 Units/L (12-78) 11/17/24 04:25 Alkaline Phosphatase 76 Units/L (46-116) 11/17/24 04:25 Creatine Kinase 53 Units/L (39-308) 11/16/24 15:06 Troponin I High Sens 17.8 ng/L (4.0-60.0) 11/16/24 15:06 B-Natriuretic Peptide 507 pg/mL (0-79) H 11/16/24 15:06 Total Protein 6.0 g/dL (6.4-8.2) L 11/17/24 04:25 Albumin 2.8 g/dL (3.4-5.0) L 11/17/24 04:25 Globulin 3.2 g/dL (2.5-4.5) 11/17/24 04:25 Albumin/Globulin Ratio 0.9 Ratio (1.1-2.1) L 11/17/24 04:25 Vitamin B12 349 pg/mL (193-986) 11/17/24 04:25 Folate > 20.0 ng/mL (>8.6) 11/17/24 04:25 Blood Type A POSITIVE 11/16/24 16:02 Antibody Screen Negative 11/16/24 16:02 Crossmatch See Detail 11/16/24 16:02 Review of Systems Constitutional: Weakness Eyes: No Symptoms Reported ENT: No Symptoms Reported Respiratory: Shortness of Breath Cardiovascular: No Symptoms Reported Gastrointestinal: No Symptoms Reported Genitourinary: No Symptoms Reported Musculoskeletal: No Symptoms Reported Skin: No Symptoms Reported Neurological: No Symptoms Reported Physical Exam Vital Signs: Vital Signs Temperature 97.6 F Temperature 98.0 F Pulse Rate [Left Radial] 93 Pulse Rate [Left Radial] 62 Respiratory Rate 17 Respiratory Rate 15 Blood Pressure [Left Arm] 166/83 Blood Pressure [Left Arm] 129/61 O2 Sat by Pulse Oximetry 96 O2 Sat by Pulse Oximetry 95 Oriented: Normal Eyes: Normal Ear: Normal Nose: Normal Throat: Normal Respiratory: Clear Throughout Cardiovascular: Normal : Normal Auscultation: Bowel Sounds: Normal Palpation: Normal Tenderness: Normal Skin: Normal Musculoskeletal: Normal Psychiatric: Normal Mood Description: Calm and Appropriate Affect: Normal Speech Pattern: Clear and Appropriate Assessment/Plan (1) Symptomatic anemia: Status: Acute Plan: Type and cross transfuse 2u packed red blood cells (2) Mild congestive heart failure: Status: Acute Review H&P Reviewed: Yes Patient was examined?: Yes
[2024-11-17] MEDS: NS 1,000 ML IV 1,000 ML IV SCH (11:17)
[2024-11-17] MEDS: NS 250 ML IV 250 ML IV ONE (16:38)
[2024-11-17] MEDS: ZOFRAN INJ 4 MG VIAL IVP PRN (21:47)
[2024-11-18 04:20] LABS: MEAN PLATELET VOLUME 7.6 fL (7.4-11.0); RED CELL DISTRIBUTION WIDTH 18.2 % (11.6-16.5)
[2024-11-18 04:36] LABS: COR CA(FOR HYPOALB) 8.9 mg/dL (8.5-10.1); CREATININE 0.95 mg/dL (0.70-1.30); eGFR NON BLACK RACES > 60 (>60)
[2024-11-18] MEDS: NS 250 ML IV 250 ML IV ONE ×2 (12:45→17:15)
[2024-11-18] MEDS: INJECTAFER 750 MG in NS 250 ML IV 250 ML IV NR ×2 (22:29→22:38)
[2024-11-19 06:04] LABS: MEAN PLATELET VOLUME 7.6 fL (7.4-11.0); RED CELL DISTRIBUTION WIDTH 18.1 % (11.6-16.5)
[2024-11-19 06:19] LABS: COR CA(FOR HYPOALB) 9.2 mg/dL (8.5-10.1); CREATININE 0.76 mg/dL (0.70-1.30); eGFR NON BLACK RACES > 60 (>60)
[2024-11-19] MEDS ORDERED: CONSULT PHARMACY - POTASSIUM & MAGNESIUM XX SCH (07:00)
[2024-11-19] MEDS: K-DUR TAB 20 MEQ PO SCH (08:48)
[2024-11-19] MEDS: MAG-OX TAB PO SCH (08:50)
--- NOTE | 2024-11-19 09:17 | PCM.PROG ---
Progress Note Progress Note for Day of Date of Exam: 11/18/24 Subjective Subjective: Patient is a 84-year-old male with a past medical history of aortic valve replacement, CHF, COPD(home 2L), CAD, hypertension, hyperlipidemia, iron deficiency anemia, admitted for symptomatic anemia. This morning he is resting comfortably in bed. No acute events overnight. He does report improvement in his symptoms. He is status post 2 units packed red blood cells. Labs/imaging: WBC 4.6, hemoglobin 7.3, platelets 197, sodium 142, potassium 3.9, creatinine 0.95, glucose 109, anemia panel revealed low iron levels. Hemeoccult positive. Will transfuse another 2 units packed red blood cells to patient. Will also ordered iron infusion. Discussed with patient and family in likely the plan with his blowing weasand to have a Watchman procedure in the near future. He has also had GI workup and they have discussed pill endoscopy to locate any particular slow bleeding. He plans to follow-up with both of them when he is discharged. Home medications have been resumed. Continue IV fluids. Otherwise continue with current treatment plan. Continue closely monitor and follow-up labs/imaging. Past Medical Family Social History Allergies: Allergies No Known Drug Allergies Allergy (Unknown, Verified 11/16/24 15:16) Onset Date: 10/01/2021 Review of Systems ROS changes noted: see HPI Vital Signs and I&O's Vital Signs: Vital Signs Temperature 97.7 F Pulse Rate [Left Radial] 86 Respiratory Rate 21 Blood Pressure [Left Arm] 135/63 O2 Sat by Pulse Oximetry 94 Intake and Output: Intake & Output 11/16/24 11/17/24 11/18/24 11/19/24 23:59 23:59 23:59 23:59 Intake Total 473 / 473 3513 / 3513 3929 / 3929 1330 / 1330 Output Total 150 / 150 1150 / 1150 800 / 800 600 / 600 Balance 323 / 323 2363 / 2363 3129 / 3129 730 / 730 Physical Exam Oriented: Normal Eyes: Normal Ear: Normal Nose: Normal Throat: Normal Respiratory: Normal Cardiovascular: Normal : Normal Auscultation: Bowel Sounds: Normal Tenderness: Normal Skin: Normal Musculoskeletal: Normal Psychiatric: Normal Mood Description: Calm and Appropriate Affect: Normal Speech Pattern: Clear and Appropriate Laboratory and Diagnostics 11/19/24 05:15 11/19/24 05:15 Labs: Laboratory WBC 6.3 X10^3/uL (3.6-10.0) 11/19/24 05:15 RBC 3.43 X10^6/uL (4.7-6.0) L 11/19/24 05:15 Hgb 9.5 g/dL (13.5-18.0) L 11/19/24 05:15 Hct 29.5 % (42.0-54.0) L 11/19/24 05:15 MCV 86.1 fL (80.0-100.0) 11/19/24 05:15 MCH 27.7 pg (27.0-34.0) 11/19/24 05:15 MCHC 32.2 g/dL (33.0-35.0) L 11/19/24 05:15 RDW 18.1 % (11.6-16.5) H 11/19/24 05:15 Plt Count 182 X10^3/uL (150.0-450.0) 11/19/24 05:15 MPV 7.6 fL (7.4-11.0) 11/19/24 05:15 Neut % (Auto) 74.7 % (42.0-75.0) 11/19/24 05:15 Lymph % (Auto) 8.3 % (21.0-51.0) L 11/19/24 05:15 [place] % (Auto) 13.1 % (0.0-13.0) H 11/19/24 05:15 Eos % (Auto) 3.4 % (0.9-2.9) H 11/19/24 05:15 Baso % (Auto) 0.5 % (0.2-1.0) 11/19/24 05:15 Neut # (Auto) 4.7 x10^3/uL (2.2-4.8) 11/19/24 05:15 Lymph # (Auto) 0.5 X10^3/uL (1.3-2.9) L 11/19/24 05:15 [place] # (Auto) 0.8 x10^3/uL (0.3-0.8) 11/19/24 05:15 Eos # (Auto) 0.2 x10^3/uL (0.0-0.2) 11/19/24 05:15 Baso # (Auto) 0.0 X10^3/uL (0.0-0.1) 11/19/24 05:15 Absolute Nucleated RBC 0.4 /100WBC 11/19/24 05:15 Absolute Retic 0.0964 10^6/uL 11/17/24 04:25 Percent Retic 4.70 % (0.8-2.2) H 11/17/24 04:25 PT 15.1 SECONDS (11.8-14.3) 11/16/24 15:06 INR Target Range - 11/16/24 15:06 INR 1.17 (0.8-1.3) 11/16/24 15:06 APTT 29.3 SECONDS (22.9-36.5) 11/16/24 15:06 PTT Comment - 11/16/24 15:06 Sodium 143 mmol/L (136-145) 11/19/24 05:15 Corrected Sodium TNP 11/19/24 05:15 Potassium 3.8 mmol/L (3.5-5.1) 11/19/24 05:15 Chloride 108 mmol/L (98-107) H 11/19/24 05:15 Carbon Dioxide 29.4 mmol/L (21-32) 11/19/24 05:15 BUN 13 mg/dL (7-18) 11/19/24 05:15 Creatinine 0.76 mg/dL (0.70-1.30) 11/19/24 05:15 Est GFR (MDRD) Af Amer > 60 (>60) 11/19/24 05:15 Est GFR (MDRD) Non-Af > 60 (>60) 11/19/24 05:15 Glucose 101 mg/dL (65-99) H 11/19/24 05:15 Calcium 8.2 mg/dL (8.5-10.1) L 11/19/24 05:15 Corrected Calcium 9.2 mg/dL (8.5-10.1) 11/19/24 05:15 Magnesium 1.8 mg/dL (2.0-2.9) L 11/19/24 05:15 Iron 12 ug/dL (50-175) L 11/17/24 04:25 TIBC 304 ug/dL (250-450) 11/17/24 04:25 Transferrin 234 mg/dL (202-364) 11/17/24 04:25 Ferritin 29 ng/mL (26-388) 11/17/24 04:25 Total Bilirubin 0.80 mg/dL (0.2-1.0) 11/19/24 05:15 AST 20 Units/L (15-37) 11/19/24 05:15 ALT 24 Units/L (12-78) 11/19/24 05:15 Alkaline Phosphatase 85 Units/L (46-116) 11/19/24 05:15 Creatine Kinase 53 Units/L (39-308) 11/16/24 15:06 Troponin I High Sens 17.8 ng/L (4.0-60.0) 11/16/24 15:06 B-Natriuretic Peptide 507 pg/mL (0-79) H 11/16/24 15:06 Total Protein 6.0 g/dL (6.4-8.2) L 11/19/24 05:15 Albumin 2.7 g/dL (3.4-5.0) L 11/19/24 05:15 Globulin 3.3 g/dL (2.5-4.5) 11/19/24 05:15 Albumin/Globulin Ratio 0.8 Ratio (1.1-2.1) L 11/19/24 05:15 Vitamin B12 349 pg/mL (193-986) 11/17/24 04:25 Folate > 20.0 ng/mL (>8.6) 11/17/24 04:25 Stl Occult Blood (IFOB) Positive (NEGATIVE) A 11/17/24 16:09 Blood Type A POSITIVE 11/16/24 16:02 Antibody Screen Negative 11/16/24 16:02 Antibody ID Referred Anti-E 11/16/24 16:02 Crossmatch See Detail 11/16/24 16:02 Plan (1) Symptomatic anemia: Status: Acute Plan: Type and cross transfuse 2u packed red blood cells (2) Mild congestive heart failure: Status: Acute
[2024-11-19 09:47] VITALS: RESP 22; O2SAT 90
[2024-11-19 12:01] VITALS: BP 138/60; PULSE 83; TEMP 97.6
--- NOTE | 2024-11-20 11:01 | W.DIS.FURT ---
Summary of Discharge Discharge Summary of Date Date of Exam: 11/19/24 Admission Date Date of Admission: 11/16/24 Admission Diagnosis Patient Problems (Updated 11/16/24 @ 16:23 by Chin Fink) Dyspnea (Acute) R06.00 Normocytic anemia (Acute) D64.9 Symptomatic anemia (Acute) D64.9 Hospital Course: Patient is a 84-year-old male with a past medical history of aortic valve replacement, CHF, COPD(home 2L), CAD, hypertension, hyperlipidemia, iron deficiency anemia, presenting with increasing weakness and shortness of breath. He had outpatient labs that revealed a hemoglobin that was 6.1. He was admitted for symptomatic anemia. Labs/imaging: WBC 4.1, hemoglobin 5.5, platelets 208, sodium 143, potassium 3.9, creatinine 0.80, glucose 86, troponin negative, BNP 507, chest x-ray consistent with CHF findings. Patient was admitted for symptomatic anemia due to iron deficiency anemia. He has antibodies to certain blood types and we are awaiting on PRBCs for transfusion. He has been seeing GI and having workup for anemia. He did have colonoscopy and is supposed to have EGD and capsule study outpatient. He denied having any active bleeding. His hemoglobin was monitored closely he was transfused 4 units of blood. His hemoglobin came up to 9.5. He also recieved iron infusion. He was doing well, tolerating p.o. intake and ambulating. He was stable to be discharged home. Vital Signs: Vital Signs (72 hours) 11/16/24 14:44 11/16/24 15:01 11/16/24 15:01 Temperature 98.3 F Pulse Rate 89 92 H Pulse Rate [Left Radial] Respiratory Rate 20 Blood Pressure 106/54 104/51 Blood Pressure [Left Arm] Blood Pressure [Right Arm] O2 Sat by Pulse Oximetry 95 93 L Oxygen Delivery Method Nasal Cannula Oxygen Flow Rate FIO2% 11/16/24 15:15 11/16/24 15:30 11/16/24 15:32 Temperature Pulse Rate 83 87 Pulse Rate [Left Radial] Respiratory Rate 34 H 40 H Blood Pressure 131/58 Blood Pressure [Left Arm] Blood Pressure [Right Arm] O2 Sat by Pulse Oximetry 96 96 Oxygen Delivery Method Oxygen Flow Rate FIO2% 11/16/24 15:32 11/16/24 15:45 11/16/24 16:00 Temperature Pulse Rate 85 83 81 Pulse Rate [Left Radial] Respiratory Rate 43 H 38 H 33 H Blood Pressure Blood Pressure [Left Arm] Blood Pressure [Right Arm] O2 Sat by Pulse Oximetry 96 95 97 Oxygen Delivery Method Oxygen Flow Rate FIO2% 11/16/24 16:15 11/16/24 16:43 11/16/24 17:20 Temperature Pulse Rate 82 Pulse Rate [Left Radial] Respiratory Rate 42 H Blood Pressure Blood Pressure [Left Arm] Blood Pressure [Right Arm] O2 Sat by Pulse Oximetry 97 Oxygen Delivery Method Nasal Cannula Nasal Cannula Oxygen Flow Rate 2 2 FIO2% 28 11/16/24 18:27 11/16/24 19:00 11/16/24 20:00 Temperature 98.3 F 97.7 F Pulse Rate Pulse Rate [Left Radial] 89 67 Respiratory Rate 20 17 Blood Pressure Blood Pressure [Left Arm] 121/56 Blood Pressure [Right Arm] 106/54 O2 Sat by Pulse Oximetry 95 98 Oxygen Delivery Method Nasal Cannula Nasal Cannula Nasal Cannula Oxygen Flow Rate 2 2 2 FIO2% 11/16/24 20:51 11/16/24 21:28 11/16/24 22:28 Temperature Pulse Rate Pulse Rate [Left Radial] Respiratory Rate 18 18 Blood Pressure Blood Pressure [Left Arm] Blood Pressure [Right Arm] O2 Sat by Pulse Oximetry Oxygen Delivery Method Nasal Cannula Oxygen Flow Rate 2 FIO2% 28 11/17/24 00:00 11/17/24 04:00 11/17/24 07:00 Temperature 98.5 F 98.0 F Pulse Rate Pulse Rate [Left Radial] 70 62 Respiratory Rate 16 15 Blood Pressure Blood Pressure [Left Arm] 147/63 129/61 Blood Pressure [Right Arm] O2 Sat by Pulse Oximetry 93 L 95 Oxygen Delivery Method Nasal Cannula Nasal Cannula Nasal Cannula Oxygen Flow Rate 2 2 2 FIO2% 11/17/24 07:41 11/17/24 12:00 11/17/24 16:00 Temperature 97.6 F 97.2 F L 97.4 F L Pulse Rate Pulse Rate [Left Radial] 93 H 76 67 Respiratory Rate 17 18 17 Blood Pressure Blood Pressure [Left Arm] 166/83 119/58 131/64 Blood Pressure [Right Arm] O2 Sat by Pulse Oximetry 96 93 L 97 Oxygen Delivery Method Nasal Cannula Nasal Cannula Oxygen Flow Rate 2 2 FIO2% 11/17/24 17:32 11/17/24 19:00 11/17/24 20:00 Temperature 97.6 F Pulse Rate Pulse Rate [Left Radial] 76 Respiratory Rate 20 Blood Pressure Blood Pressure [Left Arm] 129/63 Blood Pressure [Right Arm] O2 Sat by Pulse Oximetry 97 Oxygen Delivery Method Nasal Cannula Nasal Cannula Room Air Oxygen Flow Rate 2 2 2 FIO2% 28 11/17/24 20:00 11/17/24 20:02 11/17/24 21:02 Temperature Pulse Rate Pulse Rate [Left Radial] Respiratory Rate 18 18 Blood Pressure Blood Pressure [Left Arm] Blood Pressure [Right Arm] O2 Sat by Pulse Oximetry Oxygen Delivery Method Nasal Cannula Oxygen Flow Rate 2 FIO2% 28 11/17/24 23:58 11/18/24 00:00 11/18/24 04:00 Temperature 97.9 F 97.9 F 98.0 F Pulse Rate Pulse Rate [Left Radial] 68 68 63 Respiratory Rate 18 18 18 Blood Pressure Blood Pressure [Left Arm] 131/60 131/60 131/60 Blood Pressure [Right Arm] O2 Sat by Pulse Oximetry 93 L 93 L 94 L Oxygen Delivery Method Nasal Cannula Nasal Cannula Nasal Cannula Oxygen Flow Rate 2 2 2 FIO2% 11/18/24 07:00 11/18/24 08:00 11/18/24 09:31 Temperature 97.6 F Pulse Rate Pulse Rate [Left Radial] 83 Respiratory Rate 0 L Blood Pressure Blood Pressure [Left Arm] 160/79 Blood Pressure [Right Arm] O2 Sat by Pulse Oximetry 92 L Oxygen Delivery Method Nasal Cannula Nasal Cannula Nasal Cannula Oxygen Flow Rate 2 2 2 FIO2% 28 11/18/24 12:00 11/18/24 15:26 11/18/24 19:00 Temperature 97.4 F L 97.9 F Pulse Rate Pulse Rate [Left Radial] 80 76 Respiratory Rate 20 21 Blood Pressure Blood Pressure [Left Arm] 139/63 131/63 Blood Pressure [Right Arm] O2 Sat by Pulse Oximetry 92 L 91 L Oxygen Delivery Method Nasal Cannula Nasal Cannula Nasal Cannula Oxygen Flow Rate 2 2 2 FIO2% 11/18/24 20:00 11/18/24 21:15 11/18/24 22:35 Temperature 97.7 F Pulse Rate Pulse Rate [Left Radial] 82 Respiratory Rate 21 21 Blood Pressure Blood Pressure [Left Arm] 150/67 Blood Pressure [Right Arm] O2 Sat by Pulse Oximetry 92 L Oxygen Delivery Method Nasal Cannula Oxygen Flow Rate 2 FIO2% 28 11/18/24 23:35 11/19/24 00:00 11/19/24 04:00 Temperature 98.6 F 97.7 F Pulse Rate Pulse Rate [Left Radial] 81 86 Respiratory Rate 21 18 21 Blood Pressure Blood Pressure [Left Arm] 143/65 135/63 Blood Pressure [Right Arm] O2 Sat by Pulse Oximetry 94 L 94 L Oxygen Delivery Method Oxygen Flow Rate FIO2% 11/19/24 04:33 11/19/24 07:00 11/19/24 08:00 Temperature 97.1 F L Pulse Rate Pulse Rate [Left Radial] 93 H Respiratory Rate 22 Blood Pressure Blood Pressure [Left Arm] 160/78 Blood Pressure [Right Arm] O2 Sat by Pulse Oximetry 90 L Oxygen Delivery Method Nasal Cannula Nasal Cannula Nasal Cannula Oxygen Flow Rate 2 2 2 FIO2% 28 11/19/24 10:01 Temperature Pulse Rate Pulse Rate [Left Radial] Respiratory Rate Blood Pressure Blood Pressure [Left Arm] Blood Pressure [Right Arm] O2 Sat by Pulse Oximetry Oxygen Delivery Method Nasal Cannula Oxygen Flow Rate 2 FIO2% 28 Labs: Laboratory Last Values WBC 6.3 X10^3/uL (3.6-10.0) 11/19/24 05:15 RBC 3.43 X10^6/uL (4.7-6.0) L 11/19/24 05:15 Hgb 9.5 g/dL (13.5-18.0) L 11/19/24 05:15 Hct 29.5 % (42.0-54.0) L 11/19/24 05:15 MCV 86.1 fL (80.0-100.0) 11/19/24 05:15 MCH 27.7 pg (27.0-34.0) 11/19/24 05:15 MCHC 32.2 g/dL (33.0-35.0) L 11/19/24 05:15 RDW 18.1 % (11.6-16.5) H 11/19/24 05:15 Plt Count 182 X10^3/uL (150.0-450.0) 11/19/24 05:15 MPV 7.6 fL (7.4-11.0) 11/19/24 05:15 Neut % (Auto) 74.7 % (42.0-75.0) 11/19/24 05:15 Lymph % (Auto) 8.3 % (21.0-51.0) L 11/19/24 05:15 [place] % (Auto) 13.1 % (0.0-13.0) H 11/19/24 05:15 Eos % (Auto) 3.4 % (0.9-2.9) H 11/19/24 05:15 Baso % (Auto) 0.5 % (0.2-1.0) 11/19/24 05:15 Neut # (Auto) 4.7 x10^3/uL (2.2-4.8) 11/19/24 05:15 Lymph # (Auto) 0.5 X10^3/uL (1.3-2.9) L 11/19/24 05:15 [place] # (Auto) 0.8 x10^3/uL (0.3-0.8) 11/19/24 05:15 Eos # (Auto) 0.2 x10^3/uL (0.0-0.2) 11/19/24 05:15 Baso # (Auto) 0.0 X10^3/uL (0.0-0.1) 11/19/24 05:15 Absolute Nucleated RBC 0.4 /100WBC 11/19/24 05:15 Absolute Retic 0.0964 10^6/uL 11/17/24 04:25 Percent Retic 4.70 % (0.8-2.2) H 11/17/24 04:25 PT 15.1 SECONDS (11.8-14.3) 11/16/24 15:06 INR Target Range - 11/16/24 15:06 INR 1.17 (0.8-1.3) 11/16/24 15:06 APTT 29.3 SECONDS (22.9-36.5) 11/16/24 15:06 PTT Comment - 11/16/24 15:06 Sodium 143 mmol/L (136-145) 11/19/24 05:15 Corrected Sodium TNP 11/19/24 05:15 Potassium 3.8 mmol/L (3.5-5.1) 11/19/24 05:15 Chloride 108 mmol/L (98-107) H 11/19/24 05:15 Carbon Dioxide 29.4 mmol/L (21-32) 11/19/24 05:15 BUN 13 mg/dL (7-18) 11/19/24 05:15 Creatinine 0.76 mg/dL (0.70-1.30) 11/19/24 05:15 Est GFR (MDRD) Af Amer > 60 (>60) 11/19/24 05:15 Est GFR (MDRD) Non-Af > 60 (>60) 11/19/24 05:15 Glucose 101 mg/dL (65-99) H 11/19/24 05:15 Calcium 8.2 mg/dL (8.5-10.1) L 11/19/24 05:15 Corrected Calcium 9.2 mg/dL (8.5-10.1) 11/19/24 05:15 Magnesium 1.8 mg/dL (2.0-2.9) L 11/19/24 05:15 Iron 12 ug/dL (50-175) L 11/17/24 04:25 TIBC 304 ug/dL (250-450) 11/17/24 04:25 Transferrin 234 mg/dL (202-364) 11/17/24 04:25 Ferritin 29 ng/mL (26-388) 11/17/24 04:25 Total Bilirubin 0.80 mg/dL (0.2-1.0) 11/19/24 05:15 AST 20 Units/L (15-37) 11/19/24 05:15 ALT 24 Units/L (12-78) 11/19/24 05:15 Alkaline Phosphatase 85 Units/L (46-116) 11/19/24 05:15 Creatine Kinase 53 Units/L (39-308) 11/16/24 15:06 Troponin I High Sens 17.8 ng/L (4.0-60.0) 11/16/24 15:06 B-Natriuretic Peptide 507 pg/mL (0-79) H 11/16/24 15:06 Total Protein 6.0 g/dL (6.4-8.2) L 11/19/24 05:15 Albumin 2.7 g/dL (3.4-5.0) L 11/19/24 05:15 Globulin 3.3 g/dL (2.5-4.5) 11/19/24 05:15 Albumin/Globulin Ratio 0.8 Ratio (1.1-2.1) L 11/19/24 05:15 Vitamin B12 349 pg/mL (193-986) 11/17/24 04:25 Folate > 20.0 ng/mL (>8.6) 11/17/24 04:25 Stl Occult Blood (IFOB) Positive (NEGATIVE) A 11/17/24 16:09 Blood Type A POSITIVE 11/16/24 16:02 Antibody Screen Negative 11/16/24 16:02 Antibody ID Referred Anti-E 11/16/24 16:02 Crossmatch See Detail 11/16/24 16:02 Reason For Visit: NORMOCYTIC SYMPTOMATIC ANEMIA, DYSPNEA Discharge Diagnosis All Active Problems (Updated 11/16/24 @ 16:23 by Chin Fink) Dyspnea (Acute) Normocytic anemia (Acute) Symptomatic anemia (Acute) Pulmonary edema (Acute) Mild congestive heart failure (Acute) Hypokalemia (Acute) Gastroenteritis (Acute) Severe right inguinal pain (Acute) Chest pain (Acute) Acute diverticulitis (Acute) Abdominal pain (Acute) Pneumonia due to COVID-19 virus (Acute) Hypoxia (Acute) Nausea and vomiting (Acute) Dizziness (Acute) Hypoxia (Acute) COVID-19 virus infection (Acute) Abdominal pain (Acute) Episode of syncope (Acute) COVID-19 (Acute) New onset a-fib (Acute) COPD (chronic obstructive pulmonary disease) (Acute) Angina pectoris (Acute) Right groin pain (Acute) Hypoxemia (Acute) Bronchitis (Acute) Pleural effusion, left (Acute) COPD exacerbation (Acute) Hypokalemia (Acute) BPH (benign prostatic hypertrophy) (Chronic) Diverticulosis (Chronic) DDD (degenerative disc disease) (Chronic) History of abdominal aortic aneurysm (AAA) (Chronic) Back pain (Chronic) Plan of Treatment: Continue with present treatment and follow up plan. Pt is to keep follow up appointment as instructed and take medications as ordered. Discharge Medications Discharge Medications: No Known Drug Allergies Allergy (Unknown, Verified 11/16/24 15:16) CONTINUE taking the following medications atorvastatin 40 mg tablet 40 mg PO QDAY 11/16/24 [History] mupirocin 2 % topical ointment 1 applic topical BID-TID 11/16/24 [History] Discharge Disposition Discharge Disposition: home Discharge Condition: stable Discharge Plan Discharge Plan Hospital Course: Patient is a 84-year-old male with a past medical history of aortic valve replacement, CHF, COPD(home 2L), CAD, hypertension, hyperlipidemia, iron deficiency anemia, presenting with increasing weakness and shortness of breath. He had outpatient labs that revealed a hemoglobin that was 6.1. He was admitted for symptomatic anemia. Labs/imaging: WBC 4.1, hemoglobin 5.5, platelets 208, sodium 143, potassium 3.9, creatinine 0.80, glucose 86, troponin negative, BNP 507, chest x-ray consistent with CHF findings. Patient was admitted for symptomatic anemia due to iron deficiency anemia. He has antibodies to certain blood types and we are awaiting on PRBCs for transfusion. He has been seeing GI and having workup for anemia. He did have colonoscopy and is supposed to have EGD and capsule study outpatient. He denied having any active bleeding. His hemoglobin was monitored closely he was transfused 4 units of blood. His hemoglobin came up to 9.5. He also recieved iron infusion. He w as doing well, tolerating p.o. intake and ambulating. He was stable to be discharged home. Patient Disposition: 01 HOME, SELF-CARE Condition: Stable Health Concerns: Post Hospitalization: new medications and changes needed to prevent readmission or further decline. Pt educated and given instructions on all concerns. Plan of Treatment: Continue with present treatment and follow up plan. Pt is to keep follow up appointment as instructed and take medications as ordered. Prescription drug monitoring program results: PDMP reviewed and no concerns identified Prescriptions: Continued metoprolol succinate 50 mg tablet extended release 24 hr 50 mg PO DAILY Rx Instructions: FreeTextSig: Oral benazepril 10 mg tablet 10 mg PO DAILY Rx Instructions: FreeTextSig: Oral finasteride 5 mg tablet 5 mg PO QDAY Hemocyte-Plus 106 mg iron- 1 mg Capsule 2 cap PO DAILY furosemide 20 mg tablet 20 mg PO QAM MDD 1 Qty: 30 0RF potassium chloride 20 mEq tablet extended release 20 meq PO QDAY MDD 1 Qty: 30 0RF atorvastatin 40 mg tablet 40 mg PO QDAY mupirocin 2 % ointment 1 applic TOPICAL BID-TID clopidogrel 75 mg tablet 75 mg PO QDAY esomeprazole magnesium 40 mg capsule,delayed release(DR/EC) 40 mg PO QDAY isosorbide mononitrate 30 mg tablet extended release 24 hr 30 mg PO QDAY Follow ups/Referrals Follow ups/Referrals: Dylan Varma [Primary Care Provider, MEDICAL] - 3 days Instructions Instructions: Heart Failure Action Plan Activity Restrictions/Additional Instructions: Needs repeat labs at PCP appointment Follow-up with GI and cardiology Stand Alone Forms: Excuse From Work or School, Find Help Web Site, Post Hospital Follow Up Care Print Language: DANISH
== END 2024-11-19 11:45 | disposition home or self-care (01) | DRG 812 ==
LOC: ER 14:42 → MED/SURG 16:21
PROVIDERS: ADMIT Internal Medicine; ATTEND Internal Medicine
DX: R06.09 Other forms of dyspnea; R06.02 Shortness of breath; K92.1 Melena; R94.31 Abnormal electrocardiogram [ECG] [EKG]; Z95.2 Presence of prosthetic heart valve; Z99.81 Dependence on supplemental oxygen; I48.91 Unspecified atrial fibrillation; J44.9 Chronic obstructive pulmonary disease, unspecified; I25.810 Atherosclerosis of coronary artery bypass graft(s) without angina pectoris; D64.89 Other specified anemias; I50.9 Heart failure, unspecified; D50.8 Other iron deficiency anemias; K21.9 Gastro-esophageal reflux disease without esophagitis; E78.5 Hyperlipidemia, unspecified; Z95.5 Presence of coronary angioplasty implant and graft; Z98.890 Other specified postprocedural states; I11.0 Hypertensive heart disease with heart failure

== ENCOUNTER 2025-01-02 11:08 | Inpatient (IN) ==
[2025-01-02 11:22] VITALS: BMI 26.5
--- NOTE | 2025-01-02 11:40 | EKG ---
Test Reason : sob Blood Pressure : */* mmHG Vent. Rate : 80 BPM Atrial Rate : * BPM P-R Int : * ms QRS Dur : 98 ms QT Int : 404 ms P-R-T Axes : * -16 -27 degrees QTc Int : 465 ms Atrial fibrillation with premature ventricular or aberrantly conducted complexes Minimal voltage criteria for LVH, may be normal variant ( [place] product ) Abnormal ECG When compared with ECG of 16-NOV-2024 16:17, T wave inversion no longer evident in Lateral leads Confirmed by Tomas Sol MD ([id number]) on 01/03/2025 5:50:49 AM Referred By: Confirmed By: Tomas Sol MD
[2025-01-02 11:43] LABS: MEAN PLATELET VOLUME 7.4 fL (7.4-11.0); RED CELL DISTRIBUTION WIDTH 17.4 % (11.6-16.5)
[2025-01-02 11:55] LABS: COR CA(FOR HYPOALB) 9.2 mg/dL (8.5-10.1); CREATININE 0.95 mg/dL (0.70-1.30); eGFR NON BLACK RACES > 60 (>60)
--- NOTE | 2025-01-02 13:00 | CT ---
EXAM: CT chest without contrast HISTORY: Shortness of breath TECHNIQUE: Axial noncontrast images with coronal and sagittal reformats. Dose reduction procedures were used with mA/kv adjusted for body size. This examination is limited due to the lack of intravenous contrast. The examination was performed unenhanced at the SOLE direction of the ordering caregiver. Radiology was afforded NO input into the method of performance of this examination. COMPARISON: 12/22/2022, 07/29/2023 FINDINGS: Examination of the mediastinum demonstrated no evidence for mediastinal mass, no enlarged mediastinal or enlarged hilar adenopathy identified to the limitations of an unenhanced examination. Heart is mildly enlarged. Pulmonary venous congestion is present. No interstitial or alveolar edema identified. Calcific atherosclerotic changes present in the thoracic aorta. There is mild dilatation of the ascending thoracic aorta maximum AP diameter 4.3 cm, maximum transverse diameter 4.4 cm. Descending thoracic aorta appears normal in caliber. Patient is status post TAVR. Bilateral moderatel pleural effusions are present [id number]. Those portions of the upper abdominal organs visualized appeared within normal limits to the limitations of an unenhanced examination with the exception of partially visualized fusiform calcified dilatation of the mid infrarenal abdominal aorta measuring 3.9 cm AP and 4.1 cm transverse. This is increased in size from the examination of 07/29/2023 when it measured 3.7 x 3.6 cm. There is redemonstration of extensive plaque at the origins of the celiac axis SMA and bilateral renal arteries unchanged. No chest wall or axillary abnormalities identified. Examination of the lung neff demonstrated diffuse moderate changes of centrilobular emphysema in the upper lobes. Diffuse mild chronic appearing interstitial lung changes are present bilaterally. No pulmonary masses, alveolar infiltrates, areas of consolidation, peribronchial thickening or bronchiectasis identified. No significant noncalcified pulmonary nodules are identified. IMPRESSION: No acute pulmonary infiltrates or significant noncalcified pulmonary nodules Cardiomegaly with pulmonary venous congestion but no definite interstitial or alveolar edema Bilateral pleural effusions [id number] Upper lobe changes of centrilobular emphysema Fusiform infrarenal abdominal aortic aneurysms maximum AP diameter 4.3 cm, maximum transverse diameter 4.4 cm up from 3.9 cm AP and 4.1 cm transverse 07/29/2023. Extensive calcific atherosclerotic change involving the upper abdominal vasculature similar to that noted on prior examinations. THIS IS AN ELECTRONICALLY VERIFIED FINAL REPORT 01/02/2025 12:57 PM - Electronically signed by Chau Davila MD
[2025-01-02 13:10] LABS: BLOOD/HEMOGLOBIN,URINE 2+ (NEGATIVE); LEUKOCYTE ESTERASE ,URINE 3+ (NEGATIVE); NITRITES,URINE NEGATIVE (NEGATIVE)
[2025-01-02 13:19] LABS: APPEARANCE,URINE HAZY (CLEAR)
[2025-01-02 13:20] LABS: SQUAMOUS EPITHELIAL CELL,UR RARE /HPF (NEGATIVE)
--- NOTE | 2025-01-02 14:02 | DR.SOBA ---
HPI Time Seen Time Seen by Provider: 01/02/25 11:08 Primary Care Physician Primary Care Physician: Complaints Chief Complaint Doctors Comments: Patient with GI bleed over the last couple of months. Patient has been having workup outpatient with GI. Denies any chest pain or shortness of breath at this time but states he has been getting winded easily and feels weak. Chief Complaint:: pt states that for the past two months he has been having blood loss through his stools and has been getting bloodwork and a blood transfusion about every week. he also c/o of SOB and weakness. pt denies any chest pain. Source History Provided: Patient Mode of Arrival Mode of Arrival: Wheelchair Timing Onset of Chief Complaint: 01/02/25 PMH PMH Past Medical History: Yes Past Medical History: Arthritis, COPD, Coronary Artery Disease, Dyslipidemia, GERD, Hypertension, Kidney Stones and [place] Past Surgical History: Yes Surgical History: Angioplasty/Stents, CABG/Valve Surgery and Lithotripsy Family History History of Family Medical Conditions: Yes Family Medical History: [place] and Hypertension Social History Type of Tobacco Use: None Alcohol Use: None Do you use any recreational Drugs:: No Lives With: Alone Lives Where: Home Infectious screening Have you traveled outside the country in the last 6 months?: No Isolation: Standard ROS Review of Systems Constitutional: See HPI; negative Fever Eyes: No Symptoms Reported ENTM: No Symptoms Reported Respiratoy: No Symptoms Reported Cardiovascular: No Symptoms Reported; negative Chest Pain, Edema, Palpitations or Syncope Gastrointestinal/Abdominal: See HPI; negative Abdominal Pain, Constipation, Diarrhea, Nausea or Vomiting Genitourinary: No Symptoms Reported Neurological: No Symptoms Reported Musculoskeletal: No Symptoms Reported Integumentary: No Symptoms Reported Hematologic/Lymphatic: No Symptoms Reported Endocrine: No Symptoms Reported Psychiatric: No Symptoms Reported All Other Systems: Reviewed and Negative PE Vital Signs Vitals: Vital Signs Temperature 97.9 F Pulse Rate 77 Pulse Rate 75 Pulse Rate 75 Pulse Rate 73 Pulse Rate 76 Pulse Rate 73 Pulse Rate 64 Pulse Rate 72 Pulse Rate 70 Pulse Rate 73 Pulse Rate 77 Pulse Rate 80 Pulse Rate 72 Pulse Rate 76 Pulse Rate 76 Pulse Rate 84 Pulse Rate 79 Pulse Rate 99 Pulse Rate 80 Pulse Rate 81 Pulse Rate 83 Pulse Rate 81 Pulse Rate 82 Respiratory Rate 34 Respiratory Rate 36 Respiratory Rate 30 Respiratory Rate 29 Respiratory Rate 35 Respiratory Rate 36 Respiratory Rate 21 Respiratory Rate 21 Respiratory Rate 27 Respiratory Rate 29 Respiratory Rate 34 Respiratory Rate 37 Respiratory Rate 35 Respiratory Rate 22 Respiratory Rate 41 Respiratory Rate 31 Blood Pressure 136/97 Blood Pressure 166/68 Blood Pressure 138/60 Blood Pressure 124/57 Blood Pressure 123/59 Blood Pressure 123/59 Blood Pressure 150/62 Blood Pressure 130/60 Blood Pressure 144/67 Blood Pressure 144/67 Blood Pressure 136/59 Blood Pressure 147/65 O2 Sat by Pulse Oximetry 96 O2 Sat by Pulse Oximetry 95 O2 Sat by Pulse Oximetry 97 O2 Sat by Pulse Oximetry 97 O2 Sat by Pulse Oximetry 97 O2 Sat by Pulse Oximetry 94 O2 Sat by Pulse Oximetry 95 O2 Sat by Pulse Oximetry 94 O2 Sat by Pulse Oximetry 96 O2 Sat by Pulse Oximetry 96 O2 Sat by Pulse Oximetry 93 O2 Sat by Pulse Oximetry 93 O2 Sat by Pulse Oximetry 95 O2 Sat by Pulse Oximetry 93 O2 Sat by Pulse Oximetry 89 O2 Sat by Pulse Oximetry 94 O2 Sat by Pulse Oximetry 91 O2 Sat by Pulse Oximetry 92 O2 Sat by Pulse Oximetry 92 O2 Sat by Pulse Oximetry 95 O2 Sat by Pulse Oximetry 95 O2 Sat by Pulse Oximetry 95 General Limitations: No Limitations General Appearance: Alert and In No Apparent Distress Head Head Exam: Normal Inspection Eyes Eye exam: Normal Appearance ENT ENT Exam: Normal Exam Neck Neck Exam: Normal Inspection Chest Chest Inspection: Normal Inspection Respiratory Respiratory Exam: Normal Lung Sounds Bilat Respiratory Exam: Bilateral: Clear to Auscultation Cardiovascular Cardiovascular Exam: Regular Rate and Normal Rhythm Abdominal Exam Abdominal Exam: Normal Inspection, Normal Bowel Sounds and Soft; negative Distention, Tenderness, Guarding, Rebound, Rigidity, Organomegaly or Ascites Extremities Extremities Exam: Normal Inspection Back Back Exam: Normal Inspection Neurologic Neurological Exam: Alert and Oriented X3 Psychiatric Psychiatric Exam: Normal Affect and Normal Mood Skin Skin Exam: Warm, Dry, Intact and Normal Color COURSE Treatment Treatment: Discussed results of workup with patient. Blood transfusion ordered. Patient agreeable with admission Consultation Called: 15:05 Consultation Comments: Discussed case with Dr. Lobo and he is agreeable to admission. ROR Labs Reviewed Laboratory Results Reviewed?: Yes 01/02/25 11:20 01/02/25 11:20 Laboratory: WBC 5.5 X10^3/uL (3.6-10.0) 01/02/25 11:20 RBC 2.30 X10^6/uL (4.7-6.0) L 01/02/25 11:20 Hgb 6.7 g/dL (13.5-18.0) L* 01/02/25 11:20 Hct 20.5 % (42.0-54.0) L 01/02/25 11:20 MCV 89.1 fL (80.0-100.0) 01/02/25 11:20 MCH 29.0 pg (27.0-34.0) 01/02/25 11:20 MCHC 32.6 g/dL (33.0-35.0) L 01/02/25 11:20 RDW 17.4 % (11.6-16.5) H 01/02/25 11:20 Plt Count 194 X10^3/uL (150.0-450.0) 01/02/25 11:20 MPV 7.4 fL (7.4-11.0) 01/02/25 11:20 Neut % (Auto) 80.2 % (42.0-75.0) H 01/02/25 11:20 Lymph % (Auto) 8.1 % (21.0-51.0) L 01/02/25 11:20 [place] % (Auto) 9.6 % (0.0-13.0) 01/02/25 11:20 Eos % (Auto) 1.5 % (0.9-2.9) 01/02/25 11:20 Baso % (Auto) 0.6 % (0.2-1.0) 01/02/25 11:20 Neut # (Auto) 4.4 x10^3/uL (2.2-4.8) 01/02/25 11:20 Lymph # (Auto) 0.4 X10^3/uL (1.3-2.9) L 01/02/25 11:20 [place] # (Auto) 0.5 x10^3/uL (0.3-0.8) 01/02/25 11:20 Eos # (Auto) 0.1 x10^3/uL (0.0-0.2) 01/02/25 11:20 Baso # (Auto) 0.0 X10^3/uL (0.0-0.1) 01/02/25 11:20 Absolute Nucleated RBC 0.2 /100WBC 01/02/25 11:20 Sodium 143 mmol/L (136-145) 01/02/25 11:20 Corrected Sodium TNP 01/02/25 11:20 Potassium 4.1 mmol/L (3.5-5.1) 01/02/25 11:20 Chloride 108 mmol/L (98-107) H 01/02/25 11:20 Carbon Dioxide 29.6 mmol/L (21-32) 01/02/25 11:20 BUN 24 mg/dL (7-18) H 01/02/25 11:20 Creatinine 0.95 mg/dL (0.70-1.30) 01/02/25 11:20 Est GFR (MDRD) Af Amer > 60 (>60) 01/02/25 11:20 Est GFR (MDRD) Non-Af > 60 (>60) 01/02/25 11:20 Glucose 100 mg/dL (65-99) H 01/02/25 11:20 Calcium 8.2 mg/dL (8.5-10.1) L 01/02/25 11:20 Corrected Calcium 9.2 mg/dL (8.5-10.1) 01/02/25 11:20 Magnesium 2.1 mg/dL (2.0-2.9) 01/02/25 11:20 Total Bilirubin 0.50 mg/dL (0.2-1.0) 01/02/25 11:20 AST 17 Units/L (15-37) 01/02/25 11:20 ALT 17 Units/L (12-78) 01/02/25 11:20 Alkaline Phosphatase 69 Units/L (46-116) 01/02/25 11:20 Creatine Kinase 50 Units/L (39-308) 01/02/25 11:20 Troponin I High Sens 14.4 ng/L (4.0-60.0) 01/02/25 11:20 B-Natriuretic Peptide 485 pg/mL (0-79) H 01/02/25 11:20 Total Protein 6.0 g/dL (6.4-8.2) L 01/02/25 11:20 Albumin 2.8 g/dL (3.4-5.0) L 01/02/25 11:20 Globulin 3.2 g/dL (2.5-4.5) 01/02/25 11:20 Albumin/Globulin Ratio 0.9 Ratio (1.1-2.1) L 01/02/25 11:20 Specimen Type Clean catch urine 01/02/25 12:55 Urine Color Yellow (YELLOW) 01/02/25 12:55 Urine Appearance Hazy (CLEAR) 01/02/25 12:55 Urine pH 6.0 (5.0 - 8.0) 01/02/25 12:55 Ur Specific [place] 1.015 (1.000-1.030) 01/02/25 12:55 Urine Protein 2+ (NEGATIVE) 01/02/25 12:55 Urine Glucose (UA) Negative (NEGATIVE) 01/02/25 12:55 Urine Ketones Negative (NEGATIVE) 01/02/25 12:55 Urine Blood 2+ (NEGATIVE) 01/02/25 12:55 Urine Nitrite Negative (NEGATIVE) 01/02/25 12:55 Urine Bilirubin Negative (NEGATIVE) 01/02/25 12:55 Urine Urobilinogen Normal (NORMAL) 01/02/25 12:55 Ur Leukocyte Esterase 3+ (NEGATIVE) 01/02/25 12:55 Urine RBC 5-10 /HPF (0-3) A 01/02/25 12:55 Urine WBC Tntc /HPF (0-5) A 01/02/25 12:55 Ur Squamous Epith Cells Rare /HPF (NEGATIVE) 01/02/25 12:55 Urine Bacteria 1+ /HPF (NEGATIVE) 01/02/25 12:55 Ur Culture Indicated? Yes/culture set up 01/02/25 12:55 Blood Type A POSITIVE 01/02/25 11:20 Antibody Screen Negative 01/02/25 11:20 Crossmatch See Detail 01/02/25 11:20 Other Results Comments: [id number] : 1940 Sex: M Location: Order Number(s): [id number] Procedure(s):CHEST CT W/O CON Ordering Physician: Ryan Martins Primary Care: NFD,None Service Date: 01/02/25 Service Time: 1108 EXAM: CT chest without contrast HISTORY: Shortness of breath TECHNIQUE: Axial noncontrast images with coronal and sagittal reformats. Dose reduction procedures were used with mA/kv adjusted for body size. This examination is limited due to the lack of intravenous contrast. The examination was performed unenhanced at the SOLE direction of the ordering caregiver. Radiology was afforded NO input into the method of performance of this examination. COMPARISON: 12/22/2022, 07/29/2023 FINDINGS: Examination of the mediastinum demonstrated no evidence for mediastinal mass, no enlarged mediastinal or enlarged hilar adenopathy identified to the limitations of an unenhanced examination. Heart is mildly enlarged. Pulmonary venous congestion is present. No interstitial or alveolar edema identified. Calcific atherosclerotic changes present in the thoracic aorta. There is mild dilatation of the ascending thoracic aorta maximum AP diameter 4.3 cm, maximum transverse diameter 4.4 cm. Descending thoracic aorta appears normal in caliber. Patient is status post TAVR. Bilateral moderatel pleural effusions are present [id number]. Those portions of the upper abdominal organs visualized appeared within normal limits to the limitations of an unenhanced examination with the exception of partially visualized fusiform calcified dilatation of the mid infrarenal abdominal aorta measuring 3.9 cm AP and 4.1 cm transverse. This is increased in size from the examination of 07/29/2023 when it measured 3.7 x 3.6 cm. There is redemonstration of extensive plaque at the origins of the celiac axis SMA and bilateral renal arteries unchanged. No chest wall or axillary abnormalities identified. Examination of the lung neff demonstrated diffuse moderate changes of centrilobular emphysema in the upper lobes. Diffuse mild chronic appearing interstitial lung changes are present bilaterally. No pulmonary masses, alveolar infiltrates, areas of consolidation, peribronchial thickening or bronchiectasis identified. No significant noncalcified pulmonary nodules are identified. IMPRESSION: No acute pulmonary infiltrates or significant noncalcified pulmonary nodules Cardiomegaly with pulmonary venous congestion but no definite interstitial or alveolar edema Bilateral pleural effusions [id number] Upper lobe changes of centrilobular emphysema Fusiform infrarenal abdominal aortic aneurysms maximum AP diameter 4.3 cm, maximum transverse diameter 4.4 cm up from 3.9 cm AP and 4.1 cm transverse 07/29/2023. Extensive calcific atherosclerotic change involving the upper abdominal vasculature similar to that noted on prior examinations. THIS IS AN ELECTRONICALLY VERIFIED FINAL REPORT 01/02/2025 12:57 PM - Electronically signed by Chau Davila MD EKG Rate: 80 [place]: Normal Rhythm: Afib and PVCs Block: None Hypertrophy: LVH ST: Normal Opioid Opioid Risk Tool Age (Galo box if 16-45): No History of Preadolescent Sexual Abuse: No Total: 0 Total Score Risk Category: Low Risk Copyright: Philippe RUSSELL predicting aberrant behaviors Discharge Plan Diagnosis Discharge Problem: GI (gastrointestinal bleed), Severe anemia, Acute UTI Discharge Plan Patient Disposition: ADMITTED INPATIENT Condition: Stable Prescriptions: No Action metoprolol succinate 50 mg tablet extended release 24 hr 50 mg PO DAILY Rx Instructions: FreeTextSig: Oral benazepril 10 mg tablet 10 mg PO DAILY Rx Instructions: FreeTextSig: Oral finasteride 5 mg tablet 5 mg PO QDAY atorvastatin 40 mg tablet 40 mg PO QDAY clopidogrel 75 mg tablet 75 mg PO QDAY esomeprazole magnesium 40 mg capsule,delayed release(DR/EC) 40 mg PO QDAY isosorbide mononitrate 30 mg tablet extended release 24 hr 30 mg PO QDAY Health Concerns: Post Hospitalization: new medications and changes needed to prevent readmission or further decline. Pt educated and given instructions on all concerns. Plan of Treatment: Continue with present treatment and follow up plan. Pt is to keep follow up appointment as instructed and take medications as ordered. Orders to Discharge Patient Discharge Orders: Transfer (Routine); Ordered 01/02/25 Ordered By: Ryan Martins Follow ups/Referrals Follow ups/Referrals: NFD,None [Primary Care Provider] - 3 days Instructions Stand Alone Forms: Find Help Web Site, Post Hospital Follow Up Care Print Language: LATVIAN
[2025-01-02] MEDS: ROCEPHIN VIAL 1 GRAM IM ONE (14:13)
[2025-01-02] MEDS: ROCEPHIN VIAL 1 GRAM IVP ONE (14:14)
[2025-01-02] MEDS: NS 100 ML IV 100 ML with VENOFER 400 MG IV ONE (15:41)
[2025-01-02] MEDS ORDERED: ULTRAM PO PRN (15:45)
[2025-01-02] MEDS ORDERED: NORCO 5/325 MG TAB PO PRN (15:45)
[2025-01-02] MEDS: ROCEPHIN VIAL 1 GRAM ONE (15:45)
[2025-01-02] MEDS ORDERED: ZOFRAN INJ 4 MG VIAL IVP PRN (15:45)
[2025-01-02] MEDS: ROCEPHIN VIAL 1 GRAM 1 G in NS 100 ML IV 100 ML IV SCH (15:47)
[2025-01-02] MEDS ORDERED: CONSULT PHARMACY - POTASSIUM & MAGNESIUM XX SCH (16:00)
[2025-01-02] MEDS: TYLENOL 325 MG TAB PO PRN (21:13)
[2025-01-03 05:58] LABS: MEAN PLATELET VOLUME 7.6 fL (7.4-11.0); RED CELL DISTRIBUTION WIDTH 17.3 % (11.6-16.5)
[2025-01-03 06:03] LABS: COR CA(FOR HYPOALB) 9.2 mg/dL (8.5-10.1); CREATININE 0.72 mg/dL (0.70-1.30); eGFR NON BLACK RACES > 60 (>60)
[2025-01-03] MEDS ORDERED: CONSULT PHARMACY - POTASSIUM & MAGNESIUM XX SCH (07:00)
[2025-01-03] MEDS: NS 250 ML IV 250 ML IV ONE ×2 (07:55→13:14)
[2025-01-03] MEDS: LIPITOR TAB 40 MG PO SCH (08:54)
[2025-01-03] MEDS: IMDUR PO SCH (08:54)
[2025-01-03] MEDS: LOTENSIN TAB 10 MG PO SCH (08:54)
[2025-01-03] MEDS: TOPROL XL PO SCH (08:54)
[2025-01-03] MEDS: PROSCAR PO SCH (08:54)
[2025-01-03] MEDS: K-DUR TAB 20 MEQ PO ONE (08:55)
[2025-01-03] MEDS: PLAVIX PO SCH (08:55)
--- NOTE | 2025-01-03 10:10 | DR.H&P ---
H&P History & Physical for Day of: H&P Date: 01/03/25 Chief Complaint Chief Complaint: weakness, sob History of Present Illness History of Present Illness: Patient is a 84-year-old male with a past medical history of CAD, aortic valve replacement, hypertension, hyperlipidemia, GERD, COPD, arthritis and anemia requiring multiple transfusions presented with generalized weakness and shortness of breath. He had aortic valve replacement couple months ago. He has been having worsening anemia requiring weekly transfusions. His last admission was in November and his hemoglobin at the time was 9.5. He did have GI workup including endoscopy and colonoscopy in [place]. He was supposed to follow-up with local GI to have capsule endoscopy. He has had low hemoglobin over the past few weeks requiring weekly transfusion. His hemoglobin on admission was 6.7. He does report dark stools. He is currently on Plavix which he is supposed to stop end of this month. He has currently received 1 unit PRBC and iron infusion. He also has a UTI, currently on Rocephin. CT chest was done in the ER which showed pulmonary congestion and effusion along with emphysema. Labs/imaging reviewed: - WBC 3.9 hemoglobin 6.5 platelet 186 potassium 3.7 creatinine 0.72 - Iron 26 - Chest CT reviewed - Urine culture gram-negative rods Plan: Admit to [facility] with telemetry. Transfuse 2 units PRBCs, monitor hemoglobin. Replace electrolytes as per protocol. Resume home medications. Patient has a consultation with Dr. Aden today. Will check if he is able to do capsule endoscopy while he is admitted. Continue Rocephin. Follow-up final culture. Monitor AM labs/imaging. Time spent for clinical assessment, reviewing labs and imaging, physical exam, decision making and documentation greater than 45 minutes. Past Medical History Past Medical History: Arthritis, COPD, Coronary Artery Disease, Dyslipidemia, GERD, Hypertension, Kidney Stones and [place] Additional Medical History: Diverticulosis, AAA, BPH, Back Pain, Degenerative Disc Disease, Prostate Cancer in 2007 Past Surgical History Surgical History: Angioplasty/Stents, CABG/Valve Surgery and Lithotripsy Family History Family Medical History: [place] and Hypertension Social History Does patient currently use any type of tobacco product: No Type of Tobacco Use: None How many years tobacco product used: 3 Does any household member use tobacco: No Alcohol Use: None Drug Use: None Medications Home Medications: Home Medications Medication Instructions Recorded Confirmed Type benazepril 10 mg tablet 10 mg PO DAILY 11/11/2212/13 History metoprolol succinate 50 mg 50 mg PO DAILY 11/11/22 History tablet,extended release 24 hr clopidogrel 75 mg tablet 75 mg PO QDAY 01/10/2401/02 History esomeprazole magnesium 40 mg 40 mg PO QDAY 01/10/24 History capsule,delayed release isosorbide mononitrate 30 mg 30 mg PO QDAY 01/10/24 History tablet,extended release 24 hr finasteride 5 mg tablet 5 mg PO QDAY 07/15/24 History atorvastatin 40 mg tablet 40 mg PO QDAY 11/16/2401/02 History Allergies Allergies Allergy/AdvReac Type Severity Reaction Status Date / Time No Known Drug Allergies Allergy Unknown Verified 11/16/24 15:16 Labs 01/03/25 05:07 01/03/25 05:07 Labs: 01/02/25 12:55 Urine,Clean Catch Urine Culture - Preliminary Laboratory WBC 3.9 X10^3/uL (3.6-10.0) 01/03/25 05:07 RBC 2.24 X10^6/uL (4.7-6.0) L 01/03/25 05:07 Hgb 6.5 g/dL (13.5-18.0) L* 01/03/25 05:07 Hct 19.9 % (42.0-54.0) L* 01/03/25 05:07 MCV 88.6 fL (80.0-100.0) 01/03/25 05:07 MCH 29.2 pg (27.0-34.0) 01/03/25 05:07 MCHC 33.0 g/dL (33.0-35.0) 01/03/25 05:07 RDW 17.3 % (11.6-16.5) H 01/03/25 05:07 Plt Count 186 X10^3/uL (150.0-450.0) 01/03/25 05:07 MPV 7.6 fL (7.4-11.0) 01/03/25 05:07 Neut % (Auto) 68.2 % (42.0-75.0) 01/03/25 05:07 Lymph % (Auto) 14.4 % (21.0-51.0) L 01/03/25 05:07 [place] % (Auto) 12.6 % (0.0-13.0) 01/03/25 05:07 Eos % (Auto) 4.1 % (0.9-2.9) H 01/03/25 05:07 Baso % (Auto) 0.7 % (0.2-1.0) 01/03/25 05:07 Neut # (Auto) 2.7 x10^3/uL (2.2-4.8) 01/03/25 05:07 Lymph # (Auto) 0.6 X10^3/uL (1.3-2.9) L 01/03/25 05:07 [place] # (Auto) 0.5 x10^3/uL (0.3-0.8) 01/03/25 05:07 Eos # (Auto) 0.2 x10^3/uL (0.0-0.2) 01/03/25 05:07 Baso # (Auto) 0.0 X10^3/uL (0.0-0.1) 01/03/25 05:07 Absolute Nucleated RBC 0.2 /100WBC 01/03/25 05:07 Sodium 144 mmol/L (136-145) 01/03/25 05:07 Corrected Sodium TNP 01/03/25 05:07 Potassium 3.7 mmol/L (3.5-5.1) 01/03/25 05:07 Chloride 108 mmol/L (98-107) H 01/03/25 05:07 Carbon Dioxide 29.9 mmol/L (21-32) 01/03/25 05:07 BUN 16 mg/dL (7-18) 01/03/25 05:07 Creatinine 0.72 mg/dL (0.70-1.30) 01/03/25 05:07 Est GFR (MDRD) Af Amer > 60 (>60) 01/03/25 05:07 Est GFR (MDRD) Non-Af > 60 (>60) 01/03/25 05:07 Glucose 90 mg/dL (65-99) 01/03/25 05:07 Calcium 8.1 mg/dL (8.5-10.1) L 01/03/25 05:07 Corrected Calcium 9.2 mg/dL (8.5-10.1) 01/03/25 05:07 Magnesium 2.1 mg/dL (2.0-2.9) 01/03/25 05:07 Iron 26 ug/dL (50-175) L 01/02/25 11:20 TIBC 307 ug/dL (250-450) 01/02/25 11:20 % Saturation 8.5 % (11.0-46.0) L 01/02/25 11:20 Transferrin 237 mg/dL (202-364) 01/02/25 11:20 Ferritin 29 ng/mL (26-388) 01/02/25 11:20 Total Bilirubin 0.30 mg/dL (0.2-1.0) 01/03/25 05:07 AST 19 Units/L (15-37) 01/03/25 05:07 ALT 15 Units/L (12-78) 01/03/25 05:07 Alkaline Phosphatase 67 Units/L (46-116) 01/03/25 05:07 Creatine Kinase 50 Units/L (39-308) 01/02/25 11:20 Troponin I High Sens 14.4 ng/L (4.0-60.0) 01/02/25 11:20 B-Natriuretic Peptide 485 pg/mL (0-79) H 01/02/25 11:20 Total Protein 5.7 g/dL (6.4-8.2) L 01/03/25 05:07 Albumin 2.6 g/dL (3.4-5.0) L 01/03/25 05:07 Globulin 3.1 g/dL (2.5-4.5) 01/03/25 05:07 Albumin/Globulin Ratio 0.8 Ratio (1.1-2.1) L 01/03/25 05:07 Vitamin B12 269 pg/mL (193-986) 01/02/25 11:20 Folate > 20.0 ng/mL (>8.6) 01/02/25 11:20 Specimen Type Clean catch urine 01/02/25 12:55 Urine Color Yellow (YELLOW) 01/02/25 12:55 Urine Appearance Hazy (CLEAR) 01/02/25 12:55 Urine pH 6.0 (5.0 - 8.0) 01/02/25 12:55 Ur Specific [place] 1.015 (1.000-1.030) 01/02/25 12:55 Urine Protein 2+ (NEGATIVE) 01/02/25 12:55 Urine Glucose (UA) Negative (NEGATIVE) 01/02/25 12:55 Urine Ketones Negative (NEGATIVE) 01/02/25 12:55 Urine Blood 2+ (NEGATIVE) 01/02/25 12:55 Urine Nitrite Negative (NEGATIVE) 01/02/25 12:55 Urine Bilirubin Negative (NEGATIVE) 01/02/25 12:55 Urine Urobilinogen Normal (NORMAL) 01/02/25 12:55 Ur Leukocyte Esterase 3+ (NEGATIVE) 01/02/25 12:55 Urine RBC 5-10 /HPF (0-3) A 01/02/25 12:55 Urine WBC Tntc /HPF (0-5) A 01/02/25 12:55 Ur Squamous Epith Cells Rare /HPF (NEGATIVE) 01/02/25 12:55 Urine Bacteria 1+ /HPF (NEGATIVE) 01/02/25 12:55 Ur Culture Indicated? Yes/culture set up 01/02/25 12:55 Blood Type A POSITIVE 01/02/25 11:20 Antibody Screen Negative 01/02/25 11:20 Antibody ID Referred Anti-E 01/02/25 11:20 Crossmatch See Detail 01/02/25 11:20 Review of Systems Constitutional: Weakness Eyes: No Symptoms Reported ENT: No Symptoms Reported Respiratory: Shortness of Breath Cardiovascular: No Symptoms Reported Gastrointestinal: Melena Genitourinary: No Symptoms Reported Musculoskeletal: No Symptoms Reported Skin: No Symptoms Reported Neurological: No Symptoms Reported Physical Exam Vital Signs: Vital Signs Temperature 98.1 F Temperature 97.8 F Pulse Rate [Left] 70 Pulse Rate [Left] 67 Respiratory Rate 20 Respiratory Rate 18 Blood Pressure [Left Arm] 135/67 Blood Pressure [Left Arm] 147/63 O2 Sat by Pulse Oximetry 98 O2 Sat by Pulse Oximetry 93 Oriented: Normal Respiratory: Diminished Throughout Cardiovascular: Normal Auscultation: Bowel Sounds: Normal Palpation: Normal Tenderness: Normal Skin: Normal Musculoskeletal: Normal Psychiatric: Normal Mood Description: Calm Affect: Normal Speech Pattern: Clear and Appropriate Assessment/Plan (1) Acute UTI: Status: Acute (2) Severe anemia: Status: Acute (3) GI (gastrointestinal bleed): Qualifiers: GI bleed type/associated pathology: melena Qualified Code(s): K92.1 - Melena Status: Acute (4) Dyspnea: Qualifiers: Dyspnea type: unspecified Qualified Code(s): R06.00 - Dyspnea, unspecified Status: Acute (5) Mild congestive heart failure: Status: Chronic (6) COPD (chronic obstructive pulmonary disease): Qualifiers: COPD type: unspecified COPD Qualified Code(s): J44.9 - Chronic obstructive pulmonary disease, unspecified Status: Chronic Review H&P Reviewed: Yes Patient was examined?: Yes
[2025-01-03] MEDS: PHARMACY CONSULT XX SCH (14:08)
[2025-01-04 06:15] LABS: MEAN PLATELET VOLUME 7.5 fL (7.4-11.0); RED CELL DISTRIBUTION WIDTH 18.4 % (11.6-16.5)
[2025-01-04 06:28] LABS: COR CA(FOR HYPOALB) 9.1 mg/dL (8.5-10.1); CREATININE 0.70 mg/dL (0.70-1.30); eGFR NON BLACK RACES > 60 (>60)
[2025-01-04] MEDS: KEFLEX CAP 500 MG PO SCH (10:09)
--- NOTE | 2025-01-04 12:44 | DR.CONSULT ---
CONSULT Consultation for Day of: Date: 01/03/25 Chief Complaint Chief Complaint: hemoglobin keeps dropping Allergies Allergies Allergy/AdvReac Type Severity Reaction Status Date / Time No Known Drug Allergies Allergy Unknown Verified 11/16/24 15:16 History of Present Illness History of Present Illness: This is an 84 yo male who was referred for GI bleed. He reports his hemoglobin keeps dropping and dark tarry stools. He denies all over GI complaints. He reports that his hemoglobin has been dropping since he had aorta replacement surgery in November. He has had a recent EGD and colonoscopy in November, completed at [facility] in [place]. Reports receiving blood transfusion weekly. Reports taking Nexium 40mg PO at home daily. He also reports taking Plavix. Pt reports a h/o Gonzalez's esophagus, angiodysplasia, and adenoma colon polyp. Hemoccult blood stool positive. Hgb on admission was 6.7. past medical history of CAD, aortic valve replacement, hypertension, hyperlipidemia, GERD, COPD, arthritis and anemia requiring multiple transfusions presented with generalized weakness and shortness of breath. He had aortic valve replacement couple months ago. He has been having worsening anemia requiring weekly transfusions. His last admission was in November and his hemoglobin at the time was 9.5. He did have GI workup including endoscopy and colonoscopy in [place]. He was supposed to follow-up with local GI to have capsule endoscopy. He has had low hemoglobin over the past few weeks requiring weekly transfusion. His hemoglobin on admission was 6.7. He does report dark stools. He is currently on Plavix which he is supposed to stop end of this month. He has currently received 1 unit PRBC and iron infusion. He also has a UTI, currently on Rocephin. CT chest was done in the ER which showed pulmonary congestion and effusion along with emphysema. Past Medical History Past Medical History: Arthritis, COPD, Coronary Artery Disease, Dyslipidemia, GERD, Hypertension, Kidney Stones and [place] Additional Medical History: Diverticulosis, AAA, BPH, Back Pain, Degenerative Disc Disease, Prostate Cancer in 2007 Past Surgical History Surgical History: Angioplasty/Stents, CABG/Valve Surgery and Lithotripsy Family History Family Medical History: IL and Hypertension Social History Does patient currently use any type of tobacco product: No Type of Tobacco Use: None How many years tobacco product used: 3 Does any household member use tobacco: No Alcohol Use: None Drug Use: None Medications Home Medications: No Known Drug Allergies Allergy (Unknown, Verified 11/16/24 15:16) Review of Systems Constitutional: Weakness and Malaise Eyes: No Symptoms Reported ENT: No Symptoms Reported Respiratory: No Symptoms Reported Cardiovascular: No Symptoms Reported Gastrointestinal: Melena Genitourinary: No Symptoms Reported Musculoskeletal: No Symptoms Reported Skin: No Symptoms Reported Neurological: No Symptoms Reported Physical Exam Vital Signs: Vital Signs Temperature 98.1 F Pulse Rate [Left] 70 Respiratory Rate 20 Blood Pressure [Left Arm] 135/67 O2 Sat by Pulse Oximetry 98 Oriented: Normal, Time, Person and Place Eyes: Normal Ear: Normal Nose: Normal Throat: Normal Respiratory: Clear Throughout Cardiovascular: Normal : Normal Auscultation: Bowel Sounds: Normal Palpation: Normal Tenderness: Normal Skin: Normal Musculoskeletal: Normal Psychiatric: Normal Mood Description: Calm Affect: Normal Speech Pattern: Clear and Appropriate Plan (1) Severe anemia: Status: Acute Plan: Monitor H&H. Transfuse PRBC's. Request EGD and colonoscopy report from [facility] in [facility]. IV Protonix. Pt scheduled for Capsule Endoscopy on 01/16/25 in our [place] office-instructions given. (2) GI (gastrointestinal bleed): Status: Acute Qualifiers: GI bleed type/associated pathology: melena Qualified Code(s): K92.1 - Melena Plan: Monitor H&H. Transfuse PRBC's. Request EGD and colonoscopy report from [facility] in [facility]. IV Protonix. Pt scheduled for Capsule Endoscopy on 01/16/25 in [facility] office-instructions given. (3) Gastroesophageal reflux disease: Status: None Qualifiers: Esophagitis bleeding: unspecified whether hemorrhage Plan: IV Protonix
--- NOTE | 2025-01-04 13:30 | PCM.PROG ---
Progress Note Progress Note for Day of Date of Exam: 01/04/25 Subjective Subjective: Patient seen at bedside, no acute events overnight. He did get 3 units blood transfusion. His hemoglobin is 9.4 today. Urine culture shows Klebsiella which is resistant to Rocephin. He reports feeling better. Dr. Aden was consulted and patient was seen by her nurse practitioner yesterday. He is scheduled for capsule endoscopy on January 16 and then will have follow-up few weeks later. Son is concerned about the long wait and timing of the procedure. Patient has had weekly outpatient transfusions due to drop in hemoglobin. He would like us to check with other GI physicians in the area and expedite capsule endoscopy. Patient is supposed to stop Plavix in 4 days as advised by cardiology due to GI bleed. Patient's last dose of Plavix was yesterday. Patient would like to stop Plavix a few days early due to worsening anemia. Labs/imaging reviewed: - WBC 4.5 hemoglobin 9.4 platelet 188 BUN 18 creatinine 0.70 - Urine culture Klebsiella Plan: Continue to monitor H&H. Stop Rocephin, switch to Keflex. Stop Plavix. Stop Nexium, switch to IV Protonix. Will check with other GI physicians regarding getting an earlier appointment for capsule endoscopy. Patient and son updated about treatment plan. Discussed patient with Dr. Marlon MARTINEZ in [place]. Patient has been given an appointment for tomorrow morning. Patient's hemoglobin should be greater than 9 in order to get a better view with a capsule. Will transfuse 1 more unit today. Patient will be discharged tomorrow morning. Continue other home medications. Monitor a.m. labs and imaging. Past Medical Family Social History Allergies: Allergies No Known Drug Allergies Allergy (Unknown, Verified 11/16/24 15:16) Onset Date: 10/01/2021 Vital Signs and I&O's Vital Signs: Vital Signs Temperature 97.6 F Temperature 97.8 F Pulse Rate [Left] 72 Pulse Rate [Left] 76 Respiratory Rate 18 Respiratory Rate 19 Respiratory Rate 19 Blood Pressure [Left Arm] 149/69 Blood Pressure [Left Arm] 157/79 O2 Sat by Pulse Oximetry 95 O2 Sat by Pulse Oximetry 91 Intake and Output: Intake & Output 01/01/25 01/02/25 01/03/25 01/04/25 23:59 23:59 23:59 23:59 Intake Total 130 / 130 1430 / 1430 720 / 720 Output Total 150 / 150 600 / 600 300 / 300 Balance -20 / -20 830 / 830 420 / 420 Physical Exam Oriented: Normal, Time, Person and Place Eyes: Normal Ear: Normal Nose: Normal Throat: Normal Cardiovascular: Normal Auscultation: Bowel Sounds: Normal Palpation: Normal Tenderness: Normal Skin: Normal Musculoskeletal: Normal Psychiatric: Normal Mood Description: Calm Affect: Normal Speech Pattern: Clear and Appropriate Laboratory and Diagnostics 01/04/25 05:15 01/04/25 05:15 Labs: 01/02/25 12:55 Urine,Clean Catch Urine Culture - Final Klebsiella Pneumoniae Laboratory WBC 4.5 X10^3/uL (3.6-10.0) 01/04/25 05:15 RBC 3.16 X10^6/uL (4.7-6.0) L 01/04/25 05:15 Hgb 9.4 g/dL (13.5-18.0) L 01/04/25 05:15 Hct 28.1 % (42.0-54.0) L 01/04/25 05:15 MCV 88.8 fL (80.0-100.0) 01/04/25 05:15 MCH 29.9 pg (27.0-34.0) 01/04/25 05:15 MCHC 33.6 g/dL (33.0-35.0) 01/04/25 05:15 RDW 18.4 % (11.6-16.5) H 01/04/25 05:15 Plt Count 188 X10^3/uL (150.0-450.0) 01/04/25 05:15 MPV 7.5 fL (7.4-11.0) 01/04/25 05:15 Neut % (Auto) 65.9 % (42.0-75.0) 01/04/25 05:15 Lymph % (Auto) 16.6 % (21.0-51.0) L 01/04/25 05:15 Wise % (Auto) 11.8 % (0.0-13.0) 01/04/25 05:15 Eos % (Auto) 5.1 % (0.9-2.9) H 01/04/25 05:15 Baso % (Auto) 0.6 % (0.2-1.0) 01/04/25 05:15 Neut # (Auto) 3.0 x10^3/uL (2.2-4.8) 01/04/25 05:15 Lymph # (Auto) 0.8 X10^3/uL (1.3-2.9) L 01/04/25 05:15 Wise # (Auto) 0.5 x10^3/uL (0.3-0.8) 01/04/25 05:15 Eos # (Auto) 0.2 x10^3/uL (0.0-0.2) 01/04/25 05:15 Baso # (Auto) 0.0 X10^3/uL (0.0-0.1) 01/04/25 05:15 Absolute Nucleated RBC 0.5 /100WBC 01/04/25 05:15 Sodium 146 mmol/L (136-145) H 01/04/25 05:15 Corrected Sodium TNP 01/04/25 05:15 Potassium 4.0 mmol/L (3.5-5.1) 01/04/25 05:15 Chloride 109 mmol/L (98-107) H 01/04/25 05:15 Carbon Dioxide 31.7 mmol/L (21-32) 01/04/25 05:15 BUN 18 mg/dL (7-18) 01/04/25 05:15 Creatinine 0.70 mg/dL (0.70-1.30) 01/04/25 05:15 Est GFR (MDRD) Af Amer > 60 (>60) 01/04/25 05:15 Est GFR (MDRD) Non-Af > 60 (>60) 01/04/25 05:15 Glucose 96 mg/dL (65-99) 01/04/25 05:15 Calcium 8.1 mg/dL (8.5-10.1) L 01/04/25 05:15 Corrected Calcium 9.1 mg/dL (8.5-10.1) 01/04/25 05:15 Magnesium 2.1 mg/dL (2.0-2.9) 01/03/25 05:07 Iron 26 ug/dL (50-175) L 01/02/25 11:20 TIBC 307 ug/dL (250-450) 01/02/25 11:20 % Saturation 8.5 % (11.0-46.0) L 01/02/25 11:20 Transferrin 237 mg/dL (202-364) 01/02/25 11:20 Ferritin 29 ng/mL (26-388) 01/02/25 11:20 Total Bilirubin 0.40 mg/dL (0.2-1.0) 01/04/25 05:15 AST 19 Units/L (15-37) 01/04/25 05:15 ALT 16 Units/L (12-78) 01/04/25 05:15 Alkaline Phosphatase 70 Units/L (46-116) 01/04/25 05:15 Creatine Kinase 50 Units/L (39-308) 01/02/25 11:20 Troponin I High Sens 14.4 ng/L (4.0-60.0) 01/02/25 11:20 B-Natriuretic Peptide 485 pg/mL (0-79) H 01/02/25 11:20 Total Protein 5.9 g/dL (6.4-8.2) L 01/04/25 05:15 Albumin 2.7 g/dL (3.4-5.0) L 01/04/25 05:15 Globulin 3.2 g/dL (2.5-4.5) 01/04/25 05:15 Albumin/Globulin Ratio 0.8 Ratio (1.1-2.1) L 01/04/25 05:15 Vitamin B12 269 pg/mL (193-986) 01/02/25 11:20 Folate > 20.0 ng/mL (>8.6) 01/02/25 11:20 Specimen Type Clean catch urine 01/02/25 12:55 Urine Color Yellow (YELLOW) 01/02/25 12:55 Urine Appearance Hazy (CLEAR) 01/02/25 12:55 Urine pH 6.0 (5.0 - 8.0) 01/02/25 12:55 Ur Specific [place] 1.015 (1.000-1.030) 01/02/25 12:55 Urine Protein 2+ (NEGATIVE) 01/02/25 12:55 Urine Glucose (UA) Negative (NEGATIVE) 01/02/25 12:55 Urine Ketones Negative (NEGATIVE) 01/02/25 12:55 Urine Blood 2+ (NEGATIVE) 01/02/25 12:55 Urine Nitrite Negative (NEGATIVE) 01/02/25 12:55 Urine Bilirubin Negative (NEGATIVE) 01/02/25 12:55 Urine Urobilinogen Normal (NORMAL) 01/02/25 12:55 Ur Leukocyte Esterase 3+ (NEGATIVE) 01/02/25 12:55 Urine RBC 5-10 /HPF (0-3) A 01/02/25 12:55 Urine WBC Tntc /HPF (0-5) A 01/02/25 12:55 Ur Squamous Epith Cells Rare /HPF (NEGATIVE) 01/02/25 12:55 Urine Bacteria 1+ /HPF (NEGATIVE) 01/02/25 12:55 Ur Culture Indicated? Yes/culture set up 01/02/25 12:55 Blood Type A POSITIVE 01/02/25 11:20 Antibody Screen Negative 01/02/25 11:20 Antibody ID Referred Anti-E 01/02/25 11:20 Crossmatch See Detail 01/02/25 11:20 Plan (1) Severe anemia: Status: Acute (2) GI (gastrointestinal bleed): Status: Acute Qualifiers: GI bleed type/associated pathology: melena Qualified Code(s): K92.1 - Melena (3) Acute UTI: Status: Acute (4) Melena: Status: Acute (5) Mild congestive heart failure: Status: Chronic (6) Aortic valve replaced: Status: Chronic
[2025-01-04] MEDS: PROTONIX INJ 40 MG VIAL IVP SCH (14:30)
[2025-01-05 00:56] VITALS: RESP 18; TEMP 97.9
[2025-01-05] MEDS: NS 250 ML IV 25 ML IV ONE (02:04)
[2025-01-05 04:28] VITALS: BP 158/68; PULSE 67; O2SAT 97
[2025-01-05 06:17] LABS: MEAN PLATELET VOLUME 7.4 fL (7.4-11.0); RED CELL DISTRIBUTION WIDTH 17.6 % (11.6-16.5)
[2025-01-05 06:33] LABS: COR CA(FOR HYPOALB) 9.2 mg/dL (8.5-10.1); CREATININE 0.83 mg/dL (0.70-1.30); eGFR NON BLACK RACES > 60 (>60)
== END 2025-01-05 08:20 | disposition home health service (06) | DRG 690 ==
LOC: ER 11:08 → MED/SURG 11:08 → OBSVTOIN 15:37 → MED/SURG 15:56
PROVIDERS: ADMIT Obstetrics & Gynecology Obstetrics; ATTEND Internal Medicine
DX: R53.1 Weakness; Z99.81 Dependence on supplemental oxygen; R06.02 Shortness of breath; Z16.12 Extended spectrum beta lactamase (ESBL) resistance; I48.91 Unspecified atrial fibrillation; I50.9 Heart failure, unspecified; I25.810 Atherosclerosis of coronary artery bypass graft(s) without angina pectoris; Z16.23 Resistance to quinolones and fluoroquinolones; K92.1 Melena; B96.1 Klebsiella pneumoniae [K. pneumoniae] as the cause of diseases classified elsewhere; J44.89 Other specified chronic obstructive pulmonary disease; K21.9 Gastro-esophageal reflux disease without esophagitis; D50.8 Other iron deficiency anemias; Z66 Do not resuscitate; D64.89 Other specified anemias; I11.0 Hypertensive heart disease with heart failure; I25.2 Old myocardial infarction; R94.31 Abnormal electrocardiogram [ECG] [EKG]; J90 Pleural effusion, not elsewhere classified; Z95.2 Presence of prosthetic heart valve; E78.5 Hyperlipidemia, unspecified; N39.0 Urinary tract infection, site not specified; J43.8 Other emphysema; M19.90 Unspecified osteoarthritis, unspecified site